=== PATIENT | male | born 1955 | race Caucasian/White ===

== ENCOUNTER 2022-06-30 08:43 | Day surgery (SDC) | payer MEDICARE ==
[~2022-06-30 08:43] MED LIST: LACTATED RINGERS 1,000 ML IV SCH
[2022-06-30 09:45] LABS: Glucose,Whole Blood 87 mg/dL (70-110)
[2022-06-30] MEDS ORDERED: PROPOFOL 10 MG/ML 20 ML VIAL IV ONE (10:12)
[2022-06-30] MEDS ORDERED: LIDOCAINE 2% INJ 20 MG/ML (2 ML VIAL) ONE (10:12)
--- NOTE | 2022-06-30 10:30 | P.PCN ---
Date of Procedure: 06/30/22 Procedure(s) Performed: BRIEF HISTORY: Patient is a 66-year-old pleasant white male scheduled for an elective colonoscopy as a part of positive cologuard abd screening for colon cancer PROCEDURE PERFORMED: Colonoscopy. PREOPERATIVE DIAGNOSIS: Positive cologuard and screening for colon cancer. IV sedation per Anesthesia. PROCEDURE: After informed consent was obtained, the patient, was brought into the endoscopy unit. IV sedation was administered by Anesthesia under continuous monitoring. Digital rectal examination was normal. Initially the Olympus CF-160 flexible video colonoscope was then inserted in the rectum, gradually advanced into the cecum without any difficulty. Careful examination was performed as the scope was gradually being withdrawn. Ileocecal valve and the appendiceal orifice were visualized and appeared normal. Prep was excellent. Mucosa of the cecum, ascending colon, transverse colon, descending colon, sigmoid colon, and rectum appeared normal. Retroflexion was performed in the rectum and no lesions were seen. The patient tolerated the procedure well. IMPRESSION: Normal-appearing colon from rectum to cecum with no evidence of colorectal neoplasia. RECOMMENDATIONS: Findings of this examination were discussed with the patient as well as his family. He was advised to have a repeat screening colonoscopy in 10 years..
== END 2022-06-30 10:58 | disposition home or self-care (01) ==
LOC: ORWHC2ENDO 08:43
PROVIDERS: ATTEND Internal Medicine Gastroenterology
DX: R19.5 Other fecal abnormalities (principal); J44.9 Chronic obstructive pulmonary disease, unspecified; F17.200 Nicotine dependence, unspecified, uncomplicated; E03.9 Hypothyroidism, unspecified; Z79.01 Long term (current) use of anticoagulants; Z79.1 Long term (current) use of non-steroidal anti-inflammatories (NSAID); Z79.890 Hormone replacement therapy
CPT/HCPCS: 45378; J2704; J2001

== ENCOUNTER 2023-03-12 14:44 | Inpatient (IN) | payer MEDICARE ==
--- NOTE | 2023-03-12 15:03 | ED ---
SOB HPI - General Chief Complaint: Shortness of Breath Stated Complaint: PETEY Time Seen by Provider: 03/12/23 15:00 Source: patient, EMS Mode of arrival: EMS Limitations: no limitations - History of Present Illness Initial Comments: 67-year-old male with past history of COPD on 2 L home O2 who presents to the emergency department reporting shortness of breath, hemoptysis for the past 2 days. Denies any sick contacts with similar symptoms. He arrives with a fever but denies fevers at home. He reports his pulse ox has been falling into the high 80s. He has been using his nebulizer without any improvement in his symptoms. He denies chest pain. Admits to lower extremity swelling which is chronic for him and denies that it is any worse. No nausea, vomiting or diarrhea. No other alleviating, precipitating or modifying factors - Related Data Home Medications Medication Instructions Recorded Confirmed Albuterol Nebulized [Ventolin 2.5 mg INHALATION RT-QID 06/29/22 03/12/23 Nebulized] Fluticasone/Umeclidin/Vilanter 1 puff INHALATION RT-DAILY 06/29/22 03/12/23 [Trelegy Ellipta 100-62.5-25] Furosemide [Lasix] 40 mg PO DAILY 06/29/22 03/12/23 Ibuprofen [Motrin] 800 mg PO DAILY PRN 06/29/22 03/12/23 Levothyroxine Sodium 125 mcg PO DAILY 06/29/22 03/12/23 predniSONE 10 mg PO DAILY 06/29/22 03/12/23 Ipratropium Nebulized [Atrovent 0.5 mg INHALATION RT-QID 12/15/22 03/12/23 Nebulized 0.2 MG/ML] Albuterol Inhaler [Ventolin Hfa 2 puff INHALATION RT-QID PRN 03/12/23 03/12/23 Inhaler] Atorvastatin [Lipitor] 20 mg PO DAILY 03/12/23 03/12/23 Allergies Allergy/AdvReac Type Severity Reaction Status Date / Time No Known Allergies Allergy Verified 03/12/23 18:17 Review of Systems ROS Statement: Those systems with pertinent positive or pertinent negative responses have been documented in the HPI. ROS Other: All systems not noted in ROS Statement are negative. Past Medical History Past Medical History: Cancer, COPD, Pneumonia, Thyroid Disorder Additional Past Medical History / Comment(s): states slightly enlarged heart. prostate cancer History of Any Multi-Drug Resistant Organisms: None Reported Past Surgical History: Orthopedic Surgery Additional Past Surgical History / Comment(s): states lungs drained x2 for pneumonia, fx femur surgery, cataracts Past Anesthesia/Blood Transfusion Reactions: No Reported Reaction Past Psychological History: No Psychological Hx Reported Smoking Status: Former smoker Past Alcohol Use History: Occasional Past Drug Use History: None Reported - Past Family History Mother Family Medical History: Myocardial Infarction ([place]) General Exam Limitations: no limitations General appearance: alert, in no apparent distress Eye exam: Present: normal appearance, PERRL, EOMI. Absent: scleral icterus, conjunctival injection, periorbital swelling ENT exam: Present: mucous membranes dry Neck exam: Present: normal inspection. Absent: tenderness, meningismus, lymphadenopathy Respiratory exam: Present: wheezes, accessory muscle use, decreased breath so unds Cardiovascular Exam: Present: normal rhythm, tachycardia GI/Abdominal exam: Present: soft, normal bowel sounds. Absent: distended, tenderness, guarding, rebound, rigid Extremities exam: Present: full ROM, normal capillary refill, pedal edema. Absent: tenderness, joint swelling, calf tenderness Neurological exam: Present: alert, oriented X3, CN II-XII intact Psychiatric exam: Present: normal affect, normal mood Skin exam: Present: warm, dry, intact, normal color. Absent: rash Course Vital Signs 03/12/23 03/12/23 03/12/23 14:54 14:58 15:00 Temperature 100.8 F H Pulse Rate 122 H 113 H Respiratory 18 22 9 L Rate Blood Pressure 111/73 111/73 O2 Sat by Pulse 92 L 94 L Oximetry 03/12/23 03/12/23 03/12/23 15:30 16:00 16:30 Temperature Pulse Rate 120 H 112 H 112 H Respiratory 27 H 29 H 15 Rate Blood Pressure 106/73 106/73 O2 Sat by Pulse 94 L 95 Oximetry 03/12/23 03/12/23 19:04 19:29 Temperature Pulse Rate 108 H 102 H Respiratory 20 18 Rate Blood Pressure 117/72 117/72 O2 Sat by Pulse 94 L 93 L Oximetry Medical Decision Making - Medical Decision Making Was pt. sent in by a medical professional or institution (, PA, QUALITY SYSTEMS ENGINEER, urgent care, hospital, or custodial...) When possible be specific @ -No Did you speak to anyone other than the patient for history (EMS, parent, family, police, friend...)? What history was obtained from this source @ -No Did you review nursing and triage notes (agree or disagree)? Why? @ -I reviewed and agree with nursing and triage notes Were old charts reviewed (outside hosp., previous admission, EMS record, old EKG, old radiological studies, urgent care reports/EKG's, custodial records)? Report findings @ -Old charts were reviewed - previous admission for pneumonia Differential Diagnosis (chest pain, altered mental status, abdominal pain women, abdominal pain men, vaginal bleeding, weakness, fever, dyspnea, syncope, headache, dizziness, GI bleed, back pain, seizure, CVA, palpatations, mental health, musculoskeletal)? @ -not applicable EKG interpreted by me (3pts min.). @ -Yes and demonstrates sinus tachycardia with frequent PVCs. Rate of 111. OH interval 135. QRS 89. QTC of 349. No acute ST segment elevations or depressions X-rays interpreted by me (1pt min.). @ -Yes - CAP CT interpreted by me (1pt min.). @ -Yes - no pe, CAP U/S interpreted by me (1pt. min.). @ -None done What testing was considered but not performed or refused? (CT, X-rays, U/S, labs)? Why? @ -None What meds were considered but not given or refused? Why? @ -None Did you discuss the management of the patient with other professionals (professionals i.e. , PA, QUALITY SYSTEMS ENGINEER, lab, RT, psych nurse, social service worker, parent trainer, teacher, credit review officer, family caseworker)? Give summary @ -Dr. Hensley who accepts admission Was smoking cessation discussed for >3mins.? @ -No Was critical care preformed (if so, how long)? @ -No Were there social determinants of health that impacted care today? How? ( Homelessness, low income, unemployed, alcoholism, drug addiction, transportation, low edu. Level, literacy, decrease access to med. care, assisted, rehab)? @ -No Was there de-escalation of care discussed even if they declined (Discuss DNR or withdrawal of care, Hospice)? DNR status @ -No What co-morbidities impacted this encounter? (DM, HTN, Smoking, COPD, CAD, Cancer, CVA, ARF, Chemo, Hep., AIDS, mental health diagnosis, sleep apnea, morbid obesity)? @ -COPD, home 02 dependant Was patient admitted / discharged? Hospital course, mention meds given and route, prescriptions, significant lab abnormalities, going to OR and other pertinent info. @ -Upon arrival patient was placed into room 5. He is tachycardic, febrile with higher O2 requirements. IV is established and laboratory studies are conducted and reviewed. His chest x-ray was performed which demonstrates atelectasis versus infiltrate. CT is performed due to tachycardia and hypoxia which does not demonstrate PE. There is visualized infiltrates. Blood cultures obtained. Patient given antibiotics. Breathing treatments are ordered. He recommended admission for which the patient was agreeable. Spoke with Dr. hensley who agreed to admit the patient. Undiagnosed new problem with uncertain prognosis? @ -yes Drug Therapy requiring intensive monitoring for toxicity (Heparin, Nitro, Insulin, Cardizem)? @ -No Were any procedures done? @ -No Diagnosis/symptom? @ -Acute respiratory insufficiency on chronic respiratory failure on community-acquired pneumonia, COPD exacerbation, leukocytosis, sepsis Acute, or Chronic, or Acute on Chronic? @ -Acute Uncomplicated (without systemic symptoms) or Complicated (systemic symptoms)? @ -Complicated Side effects of treatment? @ -No Exacerbation, Progression, or Severe Exacerbation? @ -No Poses a threat to life or bodily function? How? (Chest pain, [place], [place], pneumonia, PE, COPD, DKA, ARF, appy, cholecystitis, CVA, Diverticulitis, Homicidal, Suicidal, threat to staff... and all critical care pts) @ -Yes patient has respiratory insufficiency - Lab Data Result diagrams: 03/12/23 15:19 03/12/23 15:19 Lab Results 03/12/23 03/12/23 03/12/23 Range/Units 15:19 15:19 15:19 WBC 15.9 H (3.8-10.6) k/uL RBC 4.54 (4.30-5.90) m/uL Hgb 14.5 (13.0-17.5) gm/dL Hct 44.1 (39.0-53.0) % MCV 97.1 (80.0-100.0) fL MCH 32.0 (25.0-35.0) pg MCHC 33.0 (31.0-37.0) g/dL RDW 12.5 (11.5-15.5) % Plt Count 225 (150-450) k/uL MPV 9.9 Neutrophils % 82 % Lymphocytes % 9 % Monocytes % 7 % Eosinophils % 1 % Basophils % 0 % Neutrophils # 12.9 H (1.3-7.7) k/uL Lymphocytes # 1.5 (1.0-4.8) k/uL Monocytes # 1.0 (0-1.0) k/uL Eosinophils # 0.2 (0-0.7) k/uL Basophils # 0.0 (0-0.2) k/uL PT 9.9 (9.0-12.0) sec INR 0.9 (<1.2) APTT 18.1 L (22.0-30.0) sec D-Dimer 1.22 H (<0.60) mg/L FEU Sodium (137-145) mmol/L Potassium (3.5-5.1) mmol/L Chloride (98-107) mmol/L Carbon Dioxide (22-30) mmol/L Anion Gap mmol/L BUN (9-20) mg/dL Creatinine (0.66-1.25) mg/dL Est GFR (CKD-EPI)AfAm (>60 ml/min/1.73 sqM) Est GFR (CKD-EPI)NonAf (>60 ml/min/1.73 sqM) Glucose (74-99) mg/dL Lactic Ac Sepsis Rflx Plasma Lactic Acid Alex (0.7-2.0) mmol/L Calcium (8.4-10.2) mg/dL Magnesium (1.6-2.3) mg/dL Total Bilirubin (0.2-1.3) mg/dL AST (17-59) U/L ALT (4-49) U/L Alkaline Phosphatase (38-126) U/L Troponin I (0.000-0.034) ng/mL NT-Pro-B Natriuret Pep pg/mL Total Protein (6.3-8.2) g/dL Albumin (3.5-5.0) g/dL Urine Color Yellow Urine Appearance Clear (Clear) Urine pH 5.5 (5.0-8.0) Ur Specific [place] 1.029 (1.001-1.035) Urine Protein 1+ H (Negative) Urine Glucose (UA) Negative (Negative) Urine Ketones Negative (Negative) Urine Blood Negative (Negative) Urine Nitrite Negative (Negative) Urine Bilirubin Negative (Negative) Urine Urobilinogen 2.0 (<2.0) mg/dL Ur Leukocyte Esterase Trace H (Negative) Urine RBC 1 (0-5) /hpf Urine WBC 2 (0-5) /hpf Ur Squamous Epith Cells <1 (0-4) /hpf Urine Mucus Few H (None) /hpf Influenza Type A (PCR) (Not Detectd) Influenza Type B (PCR) (Not Detectd) RSV (PCR) (Not Detectd) SARS-CoV-2 (PCR) (Not Detectd) 03/12/23 03/12/23 03/12/23 Range/Units 15:19 15:19 15:19 WBC (3.8-10.6) k/uL RBC (4.30-5.90) m/uL Hgb (13.0-17.5) gm/dL Hct (39.0-53.0) % MCV (80.0-100.0) fL MCH (25.0-35.0) pg MCHC (31.0-37.0) g/dL RDW (11.5-15.5) % Plt Count (150-450) k/uL MPV Neutrophils % % Lymphocytes % % Monocytes % % Eosinophils % % Basophils % % Neutrophils # (1.3-7.7) k/uL Lymphocytes # (1.0-4.8) k/uL Monocytes # (0-1.0) k/uL Eosinophils # (0-0.7) k/uL Basophils # (0-0.2) k/uL PT (9.0-12.0) sec INR (<1.2) APTT (22.0-30.0) sec D-Dimer (<0.60) mg/L FEU Sodium 139 (137-145) mmol/L Potassium 4.8 (3.5-5.1) mmol/L Chloride 102 (98-107) mmol/L Carbon Dioxide 29 (22-30) mmol/L Anion Gap 8 mmol/L BUN 21 H (9-20) mg/dL Creatinine 0.93 (0.66-1.25) mg/dL Est GFR (CKD-EPI)AfAm >90 (>60 ml/min/1.73 sqM) Est GFR (CKD-EPI)NonAf 86 (>60 ml/min/1.73 sqM) Glucose 124 H (74-99) mg/dL Lactic Ac Sepsis Rflx Plasma Lactic Acid Alex 2.2 H* (0.7-2.0) mmol/L Calcium 8.9 (8.4-10.2) mg/dL Magnesium 2.0 (1.6-2.3) mg/dL Total Bilirubin 0.8 (0.2-1.3) mg/dL AST 181 H (17-59) U/L ALT 171 H (4-49) U/L Alkaline Phosphatase 232 H (38-126) U/L Troponin I <0.012 (0.000-0.034) ng/mL NT-Pro-B Natriuret Pep pg/mL Total Protein 6.5 (6.3-8.2) g/dL Albumin 3.6 (3.5-5.0) g/dL Urine Color Urine Appearance (Clear) Urine pH (5.0-8.0) Ur Specific [place] (1.001-1.035) Urine Protein (Negative) Urine Glucose (UA) (Negative) Urine Ketones (Negative) Urine Blood (Negative) Urine Nitrite (Negative) Urine Bilirubin (Negative) Urine Urobilinogen (<2.0) mg/dL Ur Leukocyte Esterase (Negative) Urine RBC (0-5) /hpf Urine WBC (0-5) /hpf Ur Squamous Epith Cells (0-4) /hpf Urine Mucus (None) /hpf Influenza Type A (PCR) (Not Detectd) Influenza Type B (PCR) (Not Detectd) RSV (PCR) (Not Detectd) SARS-CoV-2 (PCR) (Not Detectd) 03/12/23 03/12/23 03/12/23 Range/Units 15:19 15:19 16:18 WBC (3.8-10.6) k/uL RBC (4.30-5.90) m/uL Hgb (13.0-17.5) gm/dL Hct (39.0-53.0) % MCV (80.0-100.0) fL MCH (25.0-35.0) pg MCHC (31.0-37.0) g/dL RDW (11.5-15.5) % Plt Count (150-450) k/uL MPV Neutrophils % % Lymphocytes % % Monocytes % % Eosinophils % % Basophils % % Neutrophils # (1.3-7.7) k/uL Lymphocytes # (1.0-4.8) k/uL Monocytes # (0-1.0) k/uL Eosinophils # (0-0.7) k/uL Basophils # (0-0.2) k/uL PT (9.0-12.0) sec INR (<1.2) APTT (22.0-30.0) sec D-Dimer (<0.60) mg/L FEU Sodium (137-145) mmol/L Potassium (3.5-5.1) mmol/L Chloride (98-107) mmol/L Carbon Dioxide (22-30) mmol/L Anion Gap mmol/L BUN (9-20) mg/dL Creatinine (0.66-1.25) mg/dL Est GFR (CKD-EPI)AfAm (>60 ml/min/1.73 sqM) Est GFR (CKD-EPI)NonAf (>60 ml/min/1.73 sqM) Glucose (74-99) mg/dL Lactic Ac Sepsis Rflx Y Plasma Lactic Acid Alex (0.7-2.0) mmol/L Calcium (8.4-10.2) mg/dL Magnesium (1.6-2.3) mg/dL Total Bilirubin (0.2-1.3) mg/dL AST (17-59) U/L ALT (4-49) U/L Alkaline Phosphatase (38-126) U/L Troponin I (0.000-0.034) ng/mL NT-Pro-B Natriuret Pep 228 pg/mL Total Protein (6.3-8.2) g/dL Albumin (3.5-5.0) g/dL Urine Color Urine Appearance (Clear) Urine pH (5.0-8.0) Ur Specific [place] (1.001-1.035) Urine Protein (Negative) Urine Glucose (UA) (Negative) Urine Ketones (Negative) Urine Blood (Negative) Urine Nitrite (Negative) Urine Bilirubin (Negative) Urine Urobilinogen (<2.0) mg/dL Ur Leukocyte Esterase (Negative) Urine RBC (0-5) /hpf Urine WBC (0-5) /hpf Ur Squamous Epith Cells (0-4) /hpf Urine Mucus (None) /hpf Influenza Type A (PCR) Not Detected (Not Detectd) Influenza Type B (PCR) Not Detected (Not Detectd) RSV (PCR) Not Detected (Not Detectd) SARS-CoV-2 (PCR) Not Detected (Not Detectd) Disposition Clinical Impression: Acute respiratory insufficiency, Pneumonia, Sepsis, Leukocytosis Disposition: ADMITTED IP TO THIS [facility] Condition: Serious Is patient prescribed a controlled substance at d/c from ED?: No Time of Disposition: 17:57 Decision to Admit Reason: Admit from EC Decision Date: 03/12/23 Decision Time: 17:57
[2023-03-12] MEDS ORDERED: ACETAMINOPHEN TAB 500 MG TAB PO STA (15:19)
[2023-03-12 15:44] LABS: Basophils % (A) 0 %; Eosinophils # (A) 0.2 k/uL (0-0.7); Eosinophils % (A) 1 %; HCT 44.1 % (39.0-53.0); HGB 14.5 gm/dL (13.0-17.5); Lymphocytes # (A) 1.5 k/uL (1.0-4.8); Lymphocytes % (A) 9 %; MCV 97.1 fL (80.0-100.0); Mean Platelet Volume 9.9; Monocytes % (A) 7 %; Neutrophils # (A) 12.9 k/uL (1.3-7.7); Neutrophils % (A) 82 %; Platelet Count 225 k/uL (150-450); RBC 4.54 m/uL (4.30-5.90); RDW 12.5 % (11.5-15.5); WBC 15.9 k/uL (3.8-10.6)
[2023-03-12 15:48] LABS: Appearance,Urine Clear (Clear); Bilirubin,Urine Negative (Negative); Blood,Urine Negative (Negative); Color,Urine Yellow; Glucose,Urine (UA) Negative (Negative); Ketones,Urine Negative (Negative); Leukocyte Esterase,Urine Trace (Negative); Mucus,Urine Few /hpf; Nitrite,Urine Negative (Negative); PH, Urine 5.5 (5.0-8.0); Protein,Urine 1+ (Negative); RBC,Urine 1 /hpf (0-5); Specific Gravity,Urine 1.029 (1.001-1.035); Squamous Epithelial Cell,Urine <1 /hpf (0-4); WBC,Urine 2 /hpf (0-5)
[2023-03-12 15:57] LABS: ALT 171 U/L (4-49); AST 181 U/L (17-59); African American GFR (CKD) >90 (>60 ml/min/1.73 sqM); Albumin 3.6 g/dL (3.5-5.0); Alkaline Phosphatase 232 U/L (38-126); Anion Gap 8 mmol/L; Blood Urea Nitrogen 21 mg/dL (9-20); Calcium 8.9 mg/dL (8.4-10.2); Carbon Dioxide 29 mmol/L (22-30); Chloride 102 mmol/L (98-107); Glucose 124 mg/dL (74-99); Non-African American GFR(CKD) 86 (>60 ml/min/1.73 sqM); Potassium 4.8 mmol/L (3.5-5.1); Sodium 139 mmol/L (137-145); Total Bilirubin 0.8 mg/dL (0.2-1.3); Total Protein 6.5 g/dL (6.3-8.2)
[2023-03-12 16:24] LABS: INR 0.9 (<1.2); Prothrombin Time 9.9 sec (9.0-12.0)
[2023-03-12 16:26] LABS: Partial Thromboplastin Time 18.1 sec (22.0-30.0)
--- NOTE | 2023-03-12 16:30 | XR ---
EXAMINATION TYPE: XR chest 2V DATE OF EXAM: 03/12/2023 COMPARISON: 06/05/2022 INDICATION: Difficulty breathing TECHNIQUE: Frontal and lateral views of the chest are obtained. FINDINGS: The heart size is normal. The pulmonary vasculature is normal. The lungs are clear. IMPRESSION: 1. No acute pulmonary process.
--- NOTE | 2023-03-12 17:16 | CT ---
EXAMINATION TYPE: CT chest angio for PE DATE OF EXAM: 03/12/2023 COMPARISON: none HISTORY: SOB, Tachycardia, elevated d-dimer CT DLP: 2359.7 mGycm CONTRAST: CT chest with contrast and 3D reconstruction with MIP imaging is performed with IV Contrast, patient injected with 100 mL of Isovue 370. Contrast-enhanced CT of the chest was performed through the course of the pulmonary arteries with lucy g and mediastinal window settings submitted. 3D reconstruction with MIP imaging was also performed. PULMONARY ARTERIES: The pulmonary arteries and their major tributaries are patent. I do not see cody dence for sizable filling defect to suggest pulmonary embolic process. LUNGS: Patchy basilar density may reflect atelectasis and/or developing infiltrate. Correlate clinica lly. MEDIASTINUM: Thoracic aorta is of normal caliber,however, evaluation is limited given timing of the contrast bolus. If there is concern for thoracic aortic pathology consider STACIA. Correlate clinicall y . The heart is not enlarged. No evidence for mediastinal mass. No mediastinal lymph nodes greater than 1cm. HILAR STRUCTURES: No evidence for mass. No hilar lymph nodes greater than 1 cm. UPPER ABDOMEN: No significant abnormality is seen. IMPRESSION: 1. No evidence for Pulmonary embolism at this time. 2. Patchy basilar density may reflect atelectasis and/or developing infiltrate. Correlate clinically .
--- NOTE | 2023-03-12 17:19 | CT ---
EXAMINATION TYPE: CT abdomen w con DATE OF EXAM: 03/12/2023 COMPARISON: none HISTORY: SOB, Tachycardia, elevated d-dimer and elevated liver enzymes CT DLP: 2359.7 mGycm CONTRAST: CT scan of the abdomen is performed without Oral Contrast and with IV Contrast, patient injected with mL of Isovue 370. FINDINGS: LUNG BASES-: E patchy basilar density at the lung bases may reflect developing infiltrate. LIVER/GB: No calcified gallstones. No space occupying hepatic lesion. Biliary tree is of normal ca liber. PANCREAS: No inflammation. No distinct mass. SPLEEN: No splenic enlargement. No lesion seen. ADRENALS: No nodule. No thickening. KIDNEYS/BLADDER: No hydronephrosis. No nephrolithiasis. Renal cystic changes. Urinary bladder gross ly unremarkable. BOWEL: Poor visualization of the appendix. Normal bowel caliber. No inflammation. LYMPH NODES: No greater than 1cm abdominal or pelvic lymph nodes are appreciated. AORTA: No significant abnormality. OSSEOUS STRUCTURES: Degenerative changes lumbar spine. OTHER: No significant additional abnormality is seen. IMPRESSION: 1. No acute process seen. Basilar atelectasis or developing infiltrates.
[2023-03-12] MEDS ORDERED: PNEUMONIA PROTOCOL UTILIZED 1 EACH MISC PO PRN (17:29)
[2023-03-12] MEDS ORDERED: AZITHROMYCIN 500 MG in SODIUM CHLORIDE 0.9% 250 ML IVPB STA (17:29)
[2023-03-12] MEDS ORDERED: IPRATROPIUM-ALBUTEROL 3 ML NEB INHALATION PRN (17:58)
[2023-03-12] MEDS: SODIUM CHLORIDE 0.9% 1,000 ML IV SCH (18:25)
[2023-03-12] MEDS ORDERED: ACETAMINOPHEN TAB 325 MG TAB PO PRN (20:17)
[2023-03-12] MEDS ORDERED: IBUPROFEN 800 MG TAB PO PRN (20:17)
[2023-03-12] MEDS ORDERED: methylPREDNISolone SOD SUCCI 125 MG/2 ML VIAL IV STA (20:18)
[2023-03-13] MEDS: SODIUM CHLORIDE 0.9% 1,000 ML IV SCH ×4 (03:08→23:34)
[2023-03-13] MEDS: LEVOTHYROXINE 125 MCG TAB PO SCH (06:18)
[2023-03-13] MEDS: methylPREDNISolone SOD SUCCI 40 MG/ML 1 ML VIAL IV SCH ×3 (06:18→23:33)
[2023-03-13] MEDS ORDERED: IPRATROPIUM 0.5 MG/2.5 ML NEBU INHALATION SCH (08:00)
[2023-03-13] MEDS ORDERED: NON FORMULARY DRUG (Fluticasone/Umeclidin/Vilanter [Trelegy Ellipta 100-62.5-25] 1 EACH Bl INHALATION SCH (08:00)
[2023-03-13] MEDS: IPRATROPIUM-ALBUTEROL 3 ML NEB INHALATION SCH ×4 (08:15→20:46)
[2023-03-13] MEDS: SYMBICORT 80-4.5 MCG INHALER INHALATION SCH ×2 (08:15→20:46)
[2023-03-13] MEDS ORDERED: ATORVASTATIN 20 MG TAB PO SCH (09:00)
--- NOTE | 2023-03-13 10:47 | P.CNPUL ---
History of Present Illness Consult date: 03/13/23 Requesting physician: Fabio Hensley Reason for consult: dyspnea, COPD Chief complaint: Shortness of breath History of present illness: This is a very pleasant 67-year-old male patient with a known history of oxygen dependent, steroid dependent chronic obstructive pulmonary disease, prostate can cer, hypothyroidism, former smoker, hyperlipidemia, chronic lower extremity edema. He presented to the emergency room yesterday with a 2 day history of increasing shortness of breath, cough and congestion. Chest x-ray revealed no acute pulmonary process. CT angiogram ruled out pulmonary embolism. There is a patchy basilar density reflecting atelectasis. Computed tomography scan of the abdomen revealed no acute process. White count 15.9. Hemoglobin 14.5. D-dimer 1.22. Sodium 139. Potassium 4.8. Bicarb 29. BUN 21. Creatinine 0.93. Glucose 124. ProBNP 228. Troponin negative 1. AST 181. ALT 171. Influenza screen negative. RSV screen negative. COVID-19 screen negative. Review of Systems REVIEW OF SYSTEMS: CONSTITUTIONAL: Denies any recent significant weight loss or weight gain. EYES: Denies change in vision. EARS, NOSE, MOUTH, THROAT: Denies headaches, denies sore throat. CARDIOVASCULAR: Denies chest pain, palpitations or syncopal episodes. RESPIRATORY: Positive for shortness of breath, cough, congestion no hemoptysis. GASTROINTESTINAL: Denies change in appetite, denies abdominal pain GENITOURINARY: Denies hematuria, denies infections. MUSKULOSKELETAL: Denies pain, denies swelling. INTEGUMENTARY: Denies rash, denies eczema. NEUROLOGICAL: Denies recent memory loss, no recent seizure activity. PSYCHIATRIC: Denies anxiety, denies depression. HEMATOLOGIC/LYMPHATIC: Denies anemia, denies enlarged lymph nodes. Past Medical History Past Medical History: Cancer, COPD, Pneumonia, Thyroid Disorder Additional Past Medical History / Comment(s): states slightly enlarged heart. prostate cancer History of Any Multi-Drug Resistant Organisms: None Reported Past Surgical History: Orthopedic Surgery Additional Past Surgical History / Comment(s): states lungs drained x2 for pneumonia, fx femur surgery, cataracts Past Anesthesia/Blood Transfusion Reactions: No Reported Reaction Past Psychological History: No Psychological Hx Reported Smoking Status: Former smoker Past Alcohol Use History: Occasional Past Drug Use History: None Reported - Past Family History Mother Family Medical History: Myocardial Infarction ([place]) Medications and Allergies Home Medications Medication Instructions Recorded Confirmed Type Albuterol Nebulized [Ventolin 2.5 mg INHALATION RT-QID 06/29/22 03/12/23 History Nebulized] Fluticasone/Umeclidin/Vilanter 1 puff INHALATION RT-DAILY 06/29/22 03/12/23 History [[place] Ellipta 100-62.5-25] Furosemide [Lasix] 40 mg PO DAILY 06/29/22 03/12/23 History Ibuprofen [Motrin] 800 mg PO DAILY PRN 06/29/22 03/12/23 History Levothyroxine Sodium 125 mcg PO DAILY 06/29/22 03/12/23 History predniSONE 10 mg PO DAILY 06/29/22 03/12/23 History Ipratropium Nebulized [Atrovent 0.5 mg INHALATION RT-QID 12/15/22 03/12/23 History Nebulized 0.2 MG/ML] Albuterol Inhaler [Ventolin Hfa 2 puff INHALATION RT-QID PRN 03/12/23 03/12/23 History Inhaler] Atorvastatin [Lipitor] 20 mg PO DAILY 03/12/23 03/12/23 History Allergies Allergy/AdvReac Type Severity Reaction Status Date / Time No Known Allergies Allergy Verified 03/12/23 18:17 Physical Exam Vitals: Vital Signs Temp Pulse Pulse Resp BP BP Pulse Ox 03/13/23 08:26 90 03/13/23 08:15 88 97 03/13/23 07:19 97.6 F 78 16 144/68 94 L 03/13/23 01:29 98.1 F 86 17 105/71 92 L 03/12/23 23:17 18 03/12/23 22:28 98.2 F 100 18 111/74 93 L 03/12/23 22:11 93 18 115/71 95 03/12/23 21:00 93 18 121/73 97 03/12/23 20:44 95 03/12/23 20:40 92 03/12/23 20:00 93 18 119/77 95 03/12/23 19:29 102 H 18 117/72 93 L 03/12/23 19:04 108 H 20 117/72 94 L 03/12/23 16:30 112 H 15 03/12/23 16:00 112 H 29 H 106/73 95 03/12/23 15:30 120 H 27 H 106/73 94 L 03/12/23 15:00 113 H 9 L 111/73 94 L 03/12/23 14:58 22 03/12/23 14:54 100.8 F H 122 H 18 111/73 92 L Intake and Output 03/12/23 03/13/23 03/13/23 22:59 06:59 14:59 Other: Weight 103.419 kg GENERAL EXAM: Alert, very pleasant 67-year-old male, on 3 L nasal cannula, comfortable in no apparent distress. HEAD: Normocephalic. EYES: Normal reaction of pupils, equal size. NOSE: Clear with pink turbinates. THROAT: No erythema or exudates. NECK: No masses, no JVD. CHEST: No chest wall deformity. LUNGS: Equal air entry with faint end expiratory wheeze, diminished. CVS: S1 and S2 normal with no audible murmur, regular rhythm. ABDOMEN: No hepatosplenomegaly, normal bowel sounds, no guarding or rigidity. SPINE: No scoliosis or deformity SKIN: No rashes CENTRAL NERVOUS SYSTEM: No focal deficits, tone is normal in all 4 extremities. EXTREMITIES: There is 1+ peripheral edema. No clubbing, no cyanosis. Peripheral pulses are intact. Results - Laboratory Findings CBC and BMP: 03/12/23 15:19 03/12/23 15:19 PT/INR, D-dimer PT 9.9 sec (9.0-12.0) 03/12/23 15:19 INR 0.9 (<1.2) 03/12/23 15:19 D-Dimer 1.22 mg/L FEU (<0.60) H 03/12/23 15:19 Abnormal lab findings: Abnormal Labs 03/12/23 03/12/23 03/12/23 15:19 15:19 15:19 WBC 15.9 H Neutrophils # 12.9 H APTT 18.1 L D-Dimer 1.22 H BUN Glucose Plasma Lactic Acid Alex AST ALT Alkaline Phosphatase Urine Protein 1+ H Ur Leukocyte Esterase Trace H Urine Mucus Few H 03/12/23 03/12/23 15:19 15:19 WBC Neutrophils # APTT D-Dimer BUN 21 H Glucose 124 H Plasma Lactic Acid Alex 2.2 H* AST 181 H ALT 171 H Alkaline Phosphatase 232 H Urine Protein Ur Leukocyte Esterase Urine Mucus - Diagnostic Findings Chest x-ray: image reviewed CT scan - chest: image reviewed Assessment and Plan Assessment: Acute exacerbation of oxygen dependent, steroid dependent chronic obstructive pulmonary disease Acute on chronic hypoxemic respiratory failure secondary to above Transaminitis of unclear etiology. Computed tomography scan of the abdomen revealed no acute process. He is on statins History of prostate cancer Hyperlipidemia Obesity Former smoker Hypothyroidism Chronic lower extremity edema maintained on diuretics Plan: The patient was seen and evaluated Chest x-ray, CAT scans, labs and medications reviewed Ultrasound of the abdomen pending Continue DuoNeb inhalations, Symbicort, IV Solu-Medrol Check a pro-calcitonin, continue antibiotics for now Titrate the FiO2 as tolerated Increase his activity as tolerated We will continue to follow and make further recommendations based on his clinical status I have personally seen and examined the patient, performed the documentation and the assessment and plan as written. Number of minutes spent on the visit: 20.
[2023-03-13] MEDS: AZITHROMYCIN 500 MG in SODIUM CHLORIDE 0.9% 250 ML IVPB SCH (10:57)
[2023-03-13 12:18] VITALS: BMI 36.8
--- NOTE | 2023-03-13 14:36 | P.HPIM ---
History of Present Illness H&P Date: 03/13/23 History of present illness; patient is a 67-year-old gentleman with past medical history significant for COPD who presented to the ER because of worsening shortness of breath. Patient stated that he was already 2 days back when he started noticing shortness of breath on rest as well as exertion. Denies any fever. Did complain of hemoptysis. Denies any chest pain. No complain of orthopnea PND. Patient has chronic swelling of feet. Because of this worsening shortness of breath, patient came to the ER Initial lab work in the ER showed WBC 15.9, hemoglobin 14.5, platelet count 225, d-dimer 1.22, sodium 139, potassium 4.8, BUN 21, creatinine 0.93, AST 181, ALT 171, Chest x-ray negative for acute pulmonary process CTA chest negative for PE, showed by patchy basilar density could be developing infiltrate CT abdomin showed no acute abdominal process Patient admitted to medicine service REVIEW OF SYSTEMS: CONSTITUTIONAL: No fever, no malaise, no fatigue. HEENT: No recent visual problems or hearing problems. Denied any sore throat. CARDIOVASCULAR: As mentioned in HPI PULMONARY: As mentioned in HPI GASTROINTESTINAL: No diarrhea, no nausea, no vomiting, no abdominal pain. NEUROLOGICAL: No headaches, no weakness, no numbness. HEMATOLOGICAL: Denies any bleeding or petechiae. GENITOURINARY: Denies any burning micturition, frequency, or urgency. MUSCULOSKELETAL/RHEUMATOLOGICAL: Denies any joint pain, swelling, or any muscle pain. ENDOCRINE: Denies any polyuria or polydipsia. The rest of the 14-point review of systems is negative. PHYSICAL EXAMINATION: GENERAL: The patient is alert and oriented x3, not in any acute distress. Well developed, well nourished. HEENT: Pupils are round and equally reacting to light. EOMI. No scleral icterus. No conjunctival pallor. Normocephalic, atraumatic. No pharyngeal erythema. No thyromegaly. CARDIOVASCULAR: S1 and S2 present. No murmurs, rubs, or gallops. PULMONARY: Coarse breath some bilaterally, no wheeze, no rhonchi ABDOMEN: Soft, nontender, nondistended, normoactive bowel sounds. No palpable organomegaly. MUSCULOSKELETAL: No joint swelling or deformity. EXTREMITIES: No cyanosis, clubbing, or pedal edema. NEUROLOGICAL: Gross neurological examination did not reveal any focal deficits. SKIN: No rashes. Assessment and plan Acute hypoxemic respiratory failure Acute COPD exacerbation Elevated d-dimer Elevated LFTs Hypothyroidism Hyperlipidemia Monitor vital signs Monitor CBC Monitor CMP Check pro-Fidencio Continue IV Rocephin and azithromycin Continue breathing treatments Continue IV steroids Hold statin Ordered ultrasound abdominal Pulmonary consulted Past Medical History Past Medical History: Cancer, COPD, Pneumonia, Thyroid Disorder Additional Past Medical History / Comment(s): states slightly enlarged heart. prostate cancer History of Any Multi-Drug Resistant Organisms: None Reported Past Surgical History: Orthopedic Surgery Additional Past Surgical History / Comment(s): states lungs drained x2 for pneumonia, fx femur surgery, cataracts Past Anesthesia/Blood Transfusion Reactions: No Reported Reaction Past Psychological History: No Psychological Hx Reported Smoking Status: Former smoker Past Alcohol Use History: Occasional Past Drug Use History: None Reported - Past Family History Mother Family Medical History: Myocardial Infarction ([place]) Medications and Allergies Home Medications Medication Instructions Recorded Confirmed Type Albuterol Nebulized [Ventolin 2.5 mg INHALATION RT-QID 06/29/22 03/12/23 History Nebulized] Fluticasone/Umeclidin/Vilanter 1 puff INHALATION RT-DAILY 06/29/22 03/12/23 History [[place]leg[place] Ellipta 100-62.5-25] Furosemide [Lasix] 40 mg PO DAILY 06/29/22 03/12/23 History Ibuprofen [Motrin] 800 mg PO DAILY PRN 06/29/22 03/12/23 History Levothyroxine Sodium 125 mcg PO DAILY 06/29/22 03/12/23 History predniSONE 10 mg PO DAILY 06/29/22 03/12/23 History Ipratropium Nebulized [Atrovent 0.5 mg INHALATION RT-QID 12/15/22 03/12/23 History Nebulized 0.2 MG/ML] Albuterol Inhaler [Ventolin Hfa 2 puff INHALATION RT-QID PRN 03/12/23 03/12/23 History Inhaler] Atorvastatin [Lipitor] 20 mg PO DAILY 03/12/23 03/12/23 History Allergies Allergy/AdvReac Type Severity Reaction Status Date / Time No Known Allergies Allergy Verified 03/12/23 18:17 Physical Exam Vitals: Vital Signs Temp Pulse Pulse Resp BP BP Pulse Ox 03/13/23 08:26 90 07/01/23 08:15 88 97 03/13/23 07:19 97.6 F 78 16 144/68 94 L 03/13/23 01:29 98.1 F 86 17 105/71 92 L 03/12/23 23:17 18 03/12/23 22:28 98.2 F 100 18 111/74 93 L 03/12/23 22:11 93 18 115/71 95 03/12/23 21:00 93 18 121/73 97 03/12/23 20:44 95 03/12/23 20:40 92 03/12/23 20:00 93 18 119/77 95 03/12/23 19:29 102 H 18 117/72 93 L 03/12/23 19:04 108 H 20 117/72 94 L 03/12/23 16:30 112 H 15 03/12/23 16:00 112 H 29 H 106/73 95 03/12/23 15:30 120 H 27 H 106/73 94 L 03/12/23 15:00 113 H 9 L 111/73 94 L 03/12/23 14:58 22 03/12/23 14:54 100.8 F H 122 H 18 111/73 92 L Intake and Output 03/12/23 03/13/23 03/13/23 22:59 06:59 14:59 Other: Weight 103.419 kg Results CBC & Chem 7: 03/12/23 15:19 03/12/23 15:19 Labs: Abnormal Lab Results - Last 24 Hours (Table) 03/12/23 03/12/23 03/12/23 Range/Units 15:19 15:19 15:19 WBC 15.9 H (3.8-10.6) k/uL Neutrophils # 12.9 H (1.3-7.7) k/uL APTT 18.1 L (22.0-30.0) sec D-Dimer 1.22 H (<0.60) mg/L FEU BUN (9-20) mg/dL Glucose (74-99) mg/dL Plasma Lactic Acid Alex (0.7-2.0) mmol/L AST (17-59) U/L ALT (4-49) U/L Alkaline Phosphatase (38-126) U/L Urine Protein 1+ H (Negative) Ur Leukocyte Esterase Trace H (Negative) Urine Mucus Few H (None) /hpf 03/12/23 03/12/23 Range/Units 15:19 15:19 WBC (3.8-10.6) k/uL Neutrophils # (1.3-7.7) k/uL APTT (22.0-30.0) sec D-Dimer (<0.60) mg/L FEU BUN 21 H (9-20) mg/dL Glucose 124 H (74-99) mg/dL Plasma Lactic Acid Alex 2.2 H* (0.7-2.0) mmol/L AST 181 H (17-59) U/L ALT 171 H (4-49) U/L Alkaline Phosphatase 232 H (38-126) U/L Urine Protein (Negative) Ur Leukocyte Esterase (Negative) Urine Mucus (None) /hpf Thrombosis Risk Factor Assmnt - Choose All That Apply Any of the Below Risk Factors Present?: Yes Each Factor Represents 1 point: Abnormal pulmonary function (COPD), Obesity (BMI >25) Other Risk Factors: Yes Each Risk Factor Represents 2 Points: Age 61-74 years Thrombosis Risk Factor Assessment Total Risk Factor Score: 4 Thrombosis Risk Factor Assessment Level: Moderate Risk
--- NOTE | 2023-03-13 17:40 | US ---
EXAMINATION TYPE: US abdomen complete DATE OF EXAM: 03/13/2023 COMPARISON: NONE CLINICAL INDICATION: Male, 67 years old with history of Abdominal pain, elevated LFTs; elevated LFTS exam limitations due to body habitus and bowel gas. TECHNIQUE: Multiple sonographic images of the abdomen are obtained. FINDINGS: EXAM MEASUREMENTS: Liver Length: 16.3 cm Gallbladder Wall: .2 cm CBD: .5 cm Spleen: 11.7 cm Right Kidney: 8.9 x 4.5 x 4.7 cm Left Kidney: 11.8 x 4.9 x 4.2 cm INCUBATOR TENDER NOTES: Pancreas: Obscured by bowel gas Liver: Increased attenuation Gallbladder: No stones seen Evidence for sonographic Dye's sign: No CBD: wnl Spleen: Obscured by overlying bowel gas Right Kidney: No hydronephrosis or masses seen Left Kidney: Hypoechoic area inf 1.5 x 1.0 x 1.3 cm and 1.9 x 1.2 x 1.3 cm. Upper IVC: wnl Abd Aorta: Obscured by overlying bowel gas The liver is homogenous. The intrahepatic portion of the IVC and proximal abdominal aorta are within normal limits. There is no evidence of cholelithiasis. Common bile duct is unremarkable. The visu alized portions of the pancreas are homogenous. The spleen is unremarkable. Kidneys are symmetric a nd free of hydronephrosis. No renal lesions are seen. IMPRESSION: 1. Limited evaluation of the aorta and pancreas due to bowel gas. 2. Increased attenuation within the liver which may indicate mild fatty infiltration. 3. No abnormality of the gallbladder biliary tree. 4. Simple cortical cyst left kidney. 5. No renal calcifications or hydronephrosis.
[2023-03-14] MEDS: SODIUM CHLORIDE 0.9% 1,000 ML IV SCH ×3 (05:20→22:18)
[2023-03-14] MEDS: LEVOTHYROXINE 125 MCG TAB PO SCH (06:17)
[2023-03-14] MEDS: SYMBICORT 80-4.5 MCG INHALER INHALATION SCH ×2 (07:35→19:23)
[2023-03-14] MEDS: IPRATROPIUM-ALBUTEROL 3 ML NEB INHALATION SCH ×4 (07:35→19:23)
[2023-03-14] MEDS: methylPREDNISolone SOD SUCCI 40 MG/ML 1 ML VIAL IV SCH ×3 (08:14→23:42)
[2023-03-14] MEDS: FUROSEMIDE 40 MG TAB PO SCH (08:14)
[2023-03-14] MEDS: AZITHROMYCIN 500 MG in SODIUM CHLORIDE 0.9% 250 ML IVPB SCH (09:21)
[2023-03-14 10:16] LABS: ALT 283 U/L (10-49); AST 231 U/L (14-35); Alkaline Phosphatase 255 U/L (41-126); BUN/Creat Ratio 30.56 Ratio (12.00-20.00); Blood Urea Nitrogen 27.5 mg/dL (9.0-27.0); Calcium 7.7 mg/dL (8.7-10.3); Carbon Dioxide 22.2 mmol/L (21.6-31.8); Chloride 109 mmol/L (96-109); Glucose 179 mg/dL (70-110); Potassium 4.4 mmol/L (3.5-5.5); Sodium 142 mmol/L (135-145); Total Bilirubin <0.2 mg/dL (0.3-1.2)
--- NOTE | 2023-03-14 11:57 | P.PN ---
Subjective Progress Note Date: 03/14/23 This is a very pleasant 67-year-old male patient with a known history of oxygen dependent, steroid dependent chronic obstructive pulmonary disease, prostate cancer, hypothyroidism, former smoker, hyperlipidemia, chronic lower extremity edema. He presented to the emergency room yesterday with a 2 day history of increasing shortness of breath, cough and congestion. Chest x-ray revealed no acute pulmonary process. CT angiogram ruled out pulmonary embolism. There is a patchy basilar density reflecting atelectasis. Computed tomography scan of the abdomen revealed no acute process. White count 15.9. Hemoglobin 14.5. D-dimer 1.22. Sodium 139. Potassium 4.8. Bicarb 29. BUN 21. Creatinine 0.93. Glucose 124. ProBNP 228. Troponin negative 1. AST 181. ALT 171. Influenza screen negative. RSV screen negative. COVID-19 screen negative. The patient is seen today 02/12/2023 in follow-up on the regular medical floor. He is awake and alert in no acute distress. Sitting up in bed. Feels generalized weakness and fatigue but breathing is better. He's lung sounds are better. His pro calcitonin was 0.12. Blood cultures reveal no growth to date. Sodium 142. Potassium 4.4. BUN 27. Creatinine 0.9. Glucose 179. AST 231. ALT 285. Ultrasound of the abdomen revealed increased attenuation within the liver which may indicate mild fatty infiltration. No gallbladder abnormalities. Simple cortical cyst left kidney. No renal calcifications or hydronephrosis. He is continued on DuoNeb inhalations, Symbicort, IV Solu-Medrol. Normal saline at 130 MLS per hour. Antibiotics in the form of ceftriaxone and azithromycin. Objective - Vital Signs Vital signs: Vital Signs Temp 98.2 F 03/14/23 07:13 Pulse 70 03/14/23 11:31 Resp 16 03/14/23 07:13 BP 120/70 03/14/23 07:13 Pulse Ox 92 L 03/14/23 07:36 FiO2 Intake & Output 03/13/23 03/14/23 03/14/23 18:59 06:59 18:59 Weight 103.419 kg Other: # Voids 1 # Bowel Movements 1 - Exam GENERAL EXAM: Alert, 67-year-old male, on 3 L nasal cannula, comfortable in no apparent distress. HEAD: Normocephalic. EYES: Normal reaction of pupils, equal size. NOSE: Clear with pink turbinates. THROAT: No erythema or exudates. NECK: No masses, no JVD. CHEST: No chest wall deformity. LUNGS: Equal air entry with faint end expiratory wheeze, diminished. CVS: S1 and S2 normal with no audible murmur, regular rhythm. ABDOMEN: No hepatosplenomegaly, normal bowel sounds, no guarding or rigidity. SPINE: No scoliosis or deformity SKIN: No rashes CENTRAL NERVOUS SYSTEM: No focal deficits, tone is normal in all 4 extremities. EXTREMITIES: There is 1+ peripheral edema. No clubbing, no cyanosis. Peripheral pulses are intact. - Labs CBC & Chem 7: 03/12/23 15:19 03/14/23 05:40 Labs: Abnormal Lab Results - Last 24 Hours (Table) 03/13/23 03/14/23 Range/Units 09:43 05:40 BUN 27.5 H (9.0-27.0) mg/dL BUN/Creatinine Ratio 30.56 H (12.00-20.00) Ratio Glucose 179 H (70-110) mg/dL Calcium 7.7 L (8.7-10.3) mg/dL Total Bilirubin <0.2 L (0.3-1.2) mg/dL AST 231 H (14-35) U/L ALT 283 H (10-49) U/L Alkaline Phosphatase 255 H (41-126) U/L Total Protein 5.0 L (6.2-8.2) d/dL Albumin 3.0 L (3.8-4.9) d/dL Albumin/Globulin Ratio 1.50 L (1.60-3.17) Ratio Procalcitonin 0.12 H (0.02-0.09) ng/mL Microbiology - Last 24 Hours (Table) 03/12/23 15:30 Blood Culture - Preliminary Blood 03/12/23 15:45 Blood Culture - Preliminary Blood Assessment and Plan Assessment: Acute exacerbation of oxygen dependent, steroid dependent chronic obstructive pulmonary disease Acute on chronic hypoxemic respiratory failure secondary to above Transaminitis of unclear etiology. Computed tomography scan of the abdomen revealed no acute process. Ultrasound of the abdomen revealed increased attenuation within the liver which may indicate mild fatty infiltration. No abnormalities of the gallbladder. Statins on hold History of prostate cancer Hyperlipidemia Obesity Former smoker Hypothyroidism Chronic lower extremity edema maintained on diuretics Plan: The patient was seen and evaluated Ultrasound of the abdomen, labs and medications reviewed Continue DuoNeb inhalations, Symbicort, IV Solu-Medrol Procalcitonin mildly elevated at 0.12, continue antibiotics for now Titrate the FiO2 as tolerated Increase his activity as tolerated We will continue to follow I have personally seen and examined the patient, performed the documentation and the assessment and plan as written. Number of minutes spent on the visit: 10.
--- NOTE | 2023-03-14 13:01 | P.PN ---
Subjective Progress Note Date: 03/14/23 patient is a 67-year-old gentleman with past medical history significant for COPD who presented to the ER because of worsening shortness of breath. Patient stated that he was already 2 days back when he started noticing shortness of breath on rest as well as exertion. Denies any fever. Did complain of h emoptysis. Denies any chest pain. No complain of orthopnea PND. Patient has chronic swelling of feet. Because of this worsening shortness of breath, patient came to the ER Initial lab work in the ER showed WBC 15.9, hemoglobin 14.5, platelet count 225, d-dimer 1.22, sodium 139, potassium 4.8, BUN 21, creatinine 0.93, AST 181, ALT 171, Chest x-ray negative for acute pulmonary process CTA chest negative for PE, showed by patchy basilar density could be developing infiltrate CT abdomin showed no acute abdominal process Patient admitted to medicine service 03/14. Patient seen and examined. States breathing is improving. Denies Abdominal pain. States cough has also improved REVIEW OF SYSTEMS: CONSTITUTIONAL: No fever, no malaise,. CARDIOVASCULAR: No chest pain, no palpitations, no syncope. PULMONARY: As mentioned in HPI GASTROINTESTINAL: No diarrhea, no nausea, no vomiting, no abdominal pain. NEUROLOGICAL: No headaches, no weakness, PHYSICAL EXAMINATION: GENERAL: The patient is alert and oriented x3, not in any acute distress. Well developed, well nourished. HEENT: Pupils are round and equally reacting to light. EOMI. No scleral icterus. No conjunctival pallor. Normocephalic, atraumatic. No pharyngeal erythema. No thyromegaly. CARDIOVASCULAR: S1 and S2 present. No murmurs, rubs, or gallops. PULMONARY: Coarse breath sounds bilaterally, expiratory wheeze audible ABDOMEN: Soft, nontender, nondistended, normoactive bowel sounds. No palpable organomegaly. MUSCULOSKELETAL: No joint swelling or deformity. EXTREMITIES: No cyanosis, clubbing, or pedal edema. NEUROLOGICAL: Gross neurological examination did not reveal any focal deficits. SKIN: No rashes. Assessment and plan Acute hypoxemic respiratory failure Acute COPD exacerbation Elevated d-dimer Elevated LFTs Hypothyroidism Hyperlipidemia Monitor vital signs Monitor CBC Monitor CMP Continue IV Rocephin and azithromycin Continue breathing treatments Continue IV steroids Hold statin Monitor LFTs Ultrasound abdomen done showed mild fatty infiltration, no abnormality of the gallbladder Follow-up on pulmonary rec Objective - Vital Signs Vital signs: Vital Signs Temp 98.2 F 03/14/23 07:13 Pulse 76 03/14/23 07:47 Resp 16 03/14/23 07:13 BP 120/70 03/14/23 07:13 Pulse Ox 92 L 03/14/23 07:36 FiO2 Intake & Output 03/13/23 03/14/23 03/14/23 18:59 06:59 18:59 Weight 103.419 kg Other: # Voids 1 # Bowel Movements 1 - Labs CBC & Chem 7: 03/12/23 15:19 03/14/23 05:40 Labs: Abnormal Lab Results - Last 24 Hours (Table) 03/13/23 Range/Units 09:43 Procalcitonin 0.12 H (0.02-0.09) ng/mL Microbiology - Last 24 Hours (Table) 03/12/23 15:30 Blood Culture - Preliminary Blood 03/12/23 15:45 Blood Culture - Preliminary Blood
[2023-03-14 13:04] LABS: Basophils # (A) 0.07 X 10*3/uL (0.00-0.10); Basophils % (A) 0.3 %; Eosinophils # (A) 0.04 X 10*3/uL (0.04-0.35); Eosinophils % (A) 0.2 %; HCT 35.7 % (39.6-50.0); HGB 11.1 d/dL (12.0-15.0); Lymphocytes # (A) 0.81 X 10*3/uL (0.90-5.00); MCH 30.9 pg (27.0-32.0); MCHC 31.1 d/dL (32.0-37.0); MCV 99.4 FL (80.0-97.0); Mean Platelet Volume 12.6 FL (9.5-12.2); Monocytes # (A) 0.87 X 10*3/uL (0.20-1.00); Monocytes % (A) 4.3 %; NRBC Per 100 WBC 0 X 10*3/uL (0.00-0.01); Neutrophils # (A) 18.18 X 10*3/uL (1.80-7.70); Neutrophils % (A) 90.1 %; Platelet Count 232 X 10*3/uL (140-440); RBC 3.59 X 10*6/uL (4.40-5.60); RDW 12.9 % (11.5-14.5)
[2023-03-15 01:55] VITALS: RESP 16
[2023-03-15] MEDS: SODIUM CHLORIDE 0.9% 1,000 ML IV SCH ×2 (05:35→15:33)
[2023-03-15] MEDS: LEVOTHYROXINE 125 MCG TAB PO SCH (05:38)
[2023-03-15] MEDS: SYMBICORT 80-4.5 MCG INHALER INHALATION SCH (08:49)
[2023-03-15] MEDS: IPRATROPIUM-ALBUTEROL 3 ML NEB INHALATION SCH ×3 (08:49→15:51)
[2023-03-15] MEDS: FUROSEMIDE 40 MG TAB PO SCH (08:50)
[2023-03-15] MEDS ORDERED: predniSONE 20 MG TAB PO SCH (09:00)
[2023-03-15] MEDS: AZITHROMYCIN 500 MG in SODIUM CHLORIDE 0.9% 250 ML IVPB SCH (10:00)
[2023-03-15 11:22] LABS: ALT 257 U/L (10-49); AST 123 U/L (14-35); Albumin 2.9 d/dL (3.8-4.9); Albumin/Globulin Ratio 1.45 Ratio (1.60-3.17); Alkaline Phosphatase 232 U/L (41-126); BUN/Creat Ratio 29.75 Ratio (12.00-20.00); Blood Urea Nitrogen 23.8 mg/dL (9.0-27.0); Calcium 6.9 mg/dL (8.7-10.3); Carbon Dioxide 18.3 mmol/L (21.6-31.8); Chloride 109 mmol/L (96-109); Glucose 132 mg/dL (70-110); Potassium 4.5 mmol/L (3.5-5.5); Sodium 141 mmol/L (135-145); Total Bilirubin <0.2 mg/dL (0.3-1.2); Total Protein 4.9 d/dL (6.2-8.2)
--- NOTE | 2023-03-15 11:34 | P.PN ---
Subjective Progress Note Date: 03/15/23 This is a very pleasant 67-year-old male patient with a known history of oxygen dependent, steroid dependent chronic obstructive pulmonary disease, prostate cancer, hypothyroidism, former smoker, hyperlipidemia, chronic lower extremity edema. He presented to the emergency room yesterday with a 2 day history of increasing shortness of breath, cough and congestion. Chest x-ray revealed no acute pulmonary process. CT angiogram ruled out pulmonary embolism. There is a patchy basilar density reflecting atelectasis. Computed tomography scan of the abdomen revealed no acute process. White count 15.9. Hemoglobin 14.5. D-dimer 1.22. Sodium 139. Potassium 4.8. Bicarb 29. BUN 21. Creatinine 0.93. Glucose 124. ProBNP 228. Troponin negative 1. AST 181. ALT 171. Influenza screen negative. RSV screen negative. COVID-19 screen negative. The patient is seen today 02/12/2023 in follow-up on the regular medical floor. He is awake and alert in no acute distress. Sitting up in bed. Feels generalized weakness and fatigue but breathing is better. He's lung sounds are better. His pro calcitonin was 0.12. Blood cultures reveal no growth to date. Sodium 142. Potassium 4.4. BUN 27. Creatinine 0.9. Glucose 179. AST 231. ALT 285. Ultrasound of the abdomen revealed increased attenuation within the liver which may indicate mild fatty infiltration. No gallbladder abnormalities. Simple cortical cyst left kidney. No renal calcifications or hydronephrosis. He is continued on DuoNeb inhalations, Symbicort, IV Solu-Medrol. Normal saline at 130 MLS per hour. Antibiotics in the form of ceftriaxone and azithromycin. The patient is seen today 03/15/2023 in follow-up on the regular medical floor. He is resting quite comfortably in bed. Awake and alert in no acute distress. Feeling back to his baseline. He is maintaining O2 saturations in the 90s on 3 L/m per nasal cannula. Saline at 130 ML's per hour. Sodium 141. Potassium 4.5. Bicarb 18. BUN 24. Creatinine 0.8. AST 123. ALT 257. He is continued on DuoNeb inhalations, Symbicort, prednisone taper. Antibiotics in form of ceftriaxone. Remains on oral diuretics. Objective - Vital Signs Vital signs: Vital Signs Temp 98.1 F 03/15/23 07:29 Pulse 78 07/03/23 09:07 Resp 16 03/15/23 07:29 BP 132/81 03/15/23 07:29 Pulse Ox 96 03/15/23 08:57 FiO2 Intake & Output 03/14/23 03/15/23 03/15/23 18:59 06:59 18:59 Intake Total 590 Output Total 600 300 Balance -600 590 -300 Intake: Oral 590 Output: Urine 600 300 Other: Voiding Method Toilet Toilet Urinal Urinal # Voids 1 2 - Exam GENERAL EXAM: Alert, pleasant 67-year-old male, resting in bed, on 3 L nasal cannula, comfortable in no apparent distress. HEAD: Normocephalic. EYES: Normal reaction of pupils, equal size. NOSE: Clear with pink turbinates. THROAT: No erythema or exudates. NECK: No masses, no JVD. CHEST: No chest wall deformity. LUNGS: Equal air entry with faint end expiratory wheeze, diminished. CVS: S1 and S2 normal with no audible murmur, regular rhythm. ABDOMEN: No hepatosplenomegaly, normal bowel sounds, no guarding or rigidity. SPINE: No scoliosis or deformity SKIN: No rashes CENTRAL NERVOUS SYSTEM: No focal deficits, tone is normal in all 4 extremities. EXTREMITIES: There is 1+ peripheral edema. No clubbing, no cyanosis. Peripheral pulses are intact. - Labs CBC & Chem 7: 03/14/23 05:40 03/15/23 05:38 Labs: Abnormal Lab Results - Last 24 Hours (Table) 03/14/23 03/15/23 Range/Units 05:40 05:38 WBC 20.20 H (4.50-10.00) X 10*3/uL RBC 3.59 L (4.40-5.60) X 10*6/uL Hgb 11.1 L (12.0-15.0) d/dL Hct 35.7 L (39.6-50.0) % MCV 99.4 H (80.0-97.0) FL MCHC 31.1 L (32.0-37.0) d/dL MPV 12.6 H (9.5-12.2) FL Neutrophils # 18.18 H (1.80-7.70) X 10*3/uL Lymphocytes # 0.81 L (0.90-5.00) X 10*3/uL Carbon Dioxide 18.3 L (21.6-31.8) mmol/L Anion Gap 13.70 H (4.00-12.00) mmol/L BUN/Creatinine Ratio 29.75 H (12.00-20.00) Ratio Glucose 132 H (70-110) mg/dL Calcium 6.9 L (8.7-10.3) mg/dL Total Bilirubin <0.2 L (0.3-1.2) mg/dL AST 123 H (14-35) U/L ALT 257 H (10-49) U/L Alkaline Phosphatase 232 H (41-126) U/L Total Protein 4.9 L (6.2-8.2) d/dL Albumin 2.9 L (3.8-4.9) d/dL Albumin/Globulin Ratio 1.45 L (1.60-3.17) Ratio Microbiology - Last 24 Hours (Table) 03/12/23 15:45 Blood Culture Gram Stain - Preliminary Blood Blood Culture - Preliminary Coagulase Negative Staph 03/12/23 15:30 Blood Culture - Preliminary Blood Assessment and Plan Assessment: Acute exacerbation of oxygen dependent, steroid dependent chronic obstructive pulmonary disease Acute on chronic hypoxemic respiratory failure secondary to above Transaminitis of unclear etiology. Computed tomography scan of the abdomen revealed no acute process. Ultrasound of the abdomen revealed increased attenuation within the liver which may indicate mild fatty infiltration. No abnormalities of the gallbladder. Statins on hold, trending down. History of prostate cancer Hyperlipidemia Obesity Former smoker Hypothyroidism Chronic lower extremity edema maintained on diuretics Plan: The patient was seen and evaluated Labs and medications reviewed Cleared for discharge from the pulmonary standpoint Continue his home pulmonary medications and oxygen Complete a prednisone taper Follow-up in our office in 1 week I have personally seen and examined the patient, performed the documentation and the assessment and plan as written. Number of minutes spent on the visit: 10.
[2023-03-15] MEDS: methylPREDNISolone SOD SUCCI 40 MG/ML 1 ML VIAL IV SCH (11:45)
[2023-03-15 14:10] VITALS: BP 131/56; TEMP 97.4
[2023-03-15 16:05] VITALS: PULSE 76
--- NOTE | 2023-03-15 20:05 | P.DS ---
Providers Date of admission: 03/12/23 17:58 Expected date of discharge: 03/15/23 Attending physician: Trevon Saravia Consults: 03/13/23 08:57 Consult Physician Routine Consulting Provider: Gilbert James Consult Reason/Comments: COPD exacerbation, respiratory failure Do you want consulting provider notified?: Yes Primary care physician: Kamala Walker [facility] Course: patient is a 67-year-old gentleman with past medical history significant for COPD who presented to the ER because of worsening shortness of breath. Patient stated that he was already 2 days back when he started noticing shortness of breath on rest as well as exertion. Denies any fever. Did complain of hemoptysis. Denies any chest pain. No complain of orthopnea PND. Patient has chronic swelling of feet. Because of this worsening shortness of breath, patient came to the ER Initial lab work in the ER showed WBC 15.9, hemoglobin 14.5, platelet count 225, d-dimer 1.22, sodium 139, potassium 4.8, BUN 21, creatinine 0.93, AST 181, ALT 171, Chest x-ray negative for acute pulmonary process CTA chest negative for PE, showed by patchy basilar density could be developing infiltrate CT abdomin showed no acute abdominal process Patient admitted to medicine service 03/14. Patient seen and examined. States breathing is improving. Denies Abdominal pain. States cough has also improved 03/15/2023: I assumed care of the patient today. Doing much better. Occasional cough. Eating well. Had a bowel movement. Keen to go home. Cleared by pulmonary. Prednisone taper. 2 more days of Ceftin. Patient has 3 L oxygen at home. On exam: 97.4, 89, 16, 131/56, 94% on 3 L Sitting at the edge of the bed, comfortable Lungs: Rate normal. Decreased breath sound Cardiovascular first seconds are normal Psychiatry: AO 3, mood affect normal Investigations: Liver ultrasound: Increase integration within the liver. CT abdomen: No acute process. Some atelectasis. Chest CTA: Patchy basilar density. Assessment and plan Acute hypoxemic respiratory failure -Acute tracheal bronchitis: Improving Acute COPD exacerbation: Better Chronic hypoxic respiratory failure from underlying COPD on 3 L oxygen at home Hypothyroidism Hyperlipidemia Increase attenuation in the liver, Probable hepatic [id number] with PCP outpatient Disposition: Home Plan - Discharge Summary Discharge Rx Participant: No New Discharge Prescriptions: New predniSONE 10 mg PO DAILY #30 tab cefUROXime axetiL [Ceftin] 500 mg PO BID #4 tab Continue Levothyroxine Sodium 125 mcg PO DAILY Ibuprofen [Motrin] 800 mg PO DAILY PRN PRN Reason: Pain Fluticasone/Umeclidin/Vilanter [Trelegy Ellipta 100-62.5-25] 1 puff INHALATION RT-DAILY Albuterol Nebulized [Ventolin Nebulized] 2.5 mg INHALATION RT-QID predniSONE 10 mg PO DAILY Furosemide [Lasix] 40 mg PO DAILY Ipratropium Nebulized [Atrovent Nebulized 0.2 MG/ML] 0.5 mg INHALATION RT-QID Albuterol Inhaler [Ventolin Hfa Inhaler] 2 puff INHALATION RT-QID PRN PRN Reason: Shortness Of Breath Atorvastatin [Lipitor] 20 mg PO DAILY Discharge Medication List Albuterol Nebulized [Ventolin Nebulized] 2.5 mg INHALATION RT-QID 06/29/22 [History] Fluticasone/Umeclidin/Vilanter [Trelegy Ellipta 100-62.5-25] 1 puff INHALATION RT-DAILY 06/29/22 [History] Furosemide [Lasix] 40 mg PO DAILY 06/29/22 [History] Ibuprofen [Motrin] 800 mg PO DAILY PRN 06/29/22 [History] Levothyroxine Sodium 125 mcg PO DAILY 06/29/22 [History] predniSONE 10 mg PO DAILY 06/29/22 [History] Ipratropium Nebulized [Atrovent Nebulized 0.2 MG/ML] 0.5 mg INHALATION RT-QID 12/15/22 [History] Albuterol Inhaler [Ventolin Hfa Inhaler] 2 puff INHALATION RT-QID PRN 03/12/23 [History] Atorvastatin [Lipitor] 20 mg PO DAILY 03/12/23 [History] cefUROXime axetiL [Ceftin] 500 mg PO BID #4 tab 03/15/23 [Rx] predniSONE 10 mg PO DAILY #30 tab 03/15/23 [Rx] Follow up Appointment(s)/Referral(s): Mckayla Hollis MD [STAFF PHYSICIAN] - 04/06/23 1:15 pm Patrick Baptiste DO [STAFF PHYSICIAN] - 1 Week (Office is closed until WednesdayMarch 17. Please call then to make a follow up appointment. ) Norberto Davis [NON-STAFF] - 1 Week Patient Instructions/Handouts: Pneumonitis (DC), Sepsis (DC), Leukocytosis (DC), Acute Respiratory Failure (GEN)
== END 2023-03-15 17:34 | disposition home or self-care (01) | DRG 189 ==
LOC: EC 14:44 → 4SSUR 17:58 → 5NMEDONC 20:05
PROVIDERS: ADMIT Hospitalist; ATTEND Hospitalist
DX: J96.21 Acute and chronic respiratory failure with hypoxia (principal); J44.1 Chronic obstructive pulmonary disease with (acute) exacerbation; J98.11 Atelectasis; E03.9 Hypothyroidism, unspecified; E66.9 Obesity, unspecified; E78.5 Hyperlipidemia, unspecified; J20.9 Acute bronchitis, unspecified; K76.0 Fatty (change of) liver, not elsewhere classified; Z20.822 Contact with and (suspected) exposure to COVID-19; Z79.52 Long term (current) use of systemic steroids; Z79.890 Hormone replacement therapy; Z79.899 Other long term (current) drug therapy; Z82.49 Family history of ischemic heart disease and other diseases of the circulatory system; Z85.46 Personal history of malignant neoplasm of prostate; Z99.81 Dependence on supplemental oxygen; Z68.36 Body mass index [BMI] 36.0-36.9, adult
CPT/HCPCS: 36415; 71046; 71275; 74160; 76700; 80053; 81001; 83605; 83735; 83880; 84145; 84484; 85025; 85379; 85610; 85730; 87040; 87449; 87636; 93005; 94640; 94760; 96365; 96366; 96375; 99285

== ENCOUNTER → 2023-12-22 | Outpatient (CLI) | payer MEDICARE ==
[2023-12-22 15:38] LABS: Appearance,Urine Clear (Clear); Bilirubin,Urine Negative (Negative); Blood,Urine Negative (Negative); Color,Urine Yellow (Yellow); Ketones,Urine Negative (Negative); Nitrite,Urine Negative (Negative); Specific Gravity,Urine 1.006 (1.001-1.030); Urobilinogen,Urine 0.2 E.U./DL
[2023-12-22 16:16] LABS: Basophils # (A) 0.09 X 10*3/uL (0.00-0.10); Basophils % (A) 0.9 %; Eosinophils # (A) 0.36 X 10*3/uL (0.04-0.35); Eosinophils % (A) 3.6 %; HCT 46.2 % (39.6-50.0); HGB 14.7 g/dL (13.0-17.0); Lymphocytes # (A) 1.56 X 10*3/uL (0.90-5.00); Lymphocytes % (A) 15.4 %; MCHC 31.8 g/dL (32.0-37.0); MCV 97.5 FL (80.0-97.0); Mean Platelet Volume 12.5 FL (9.5-12.2); Monocytes # (A) 0.53 X 10*3/uL (0.20-1.00); Monocytes % (A) 5.2 %; NRBC Per 100 WBC 0 X 10*3/uL (0.00-0.01); Neutrophils # (A) 7.55 X 10*3/uL (1.80-7.70); Neutrophils % (A) 74.6 %; Platelet Count 210 X 10*3/uL (140-440); RBC 4.74 X 10*6/uL (4.40-5.60); RDW 13.5 % (11.5-14.5); WBC 10.12 X 10*3/uL (4.50-10.00)
[2023-12-22 16:27] LABS: BUN/Creat Ratio 16.09 Ratio (12.00-20.00); Blood Urea Nitrogen 17.7 mg/dL (9.0-27.0); Calcium 8.8 mg/dL (8.7-10.3); Carbon Dioxide 25.5 mmol/L (21.6-31.8); Chloride 104 mmol/L (96-109); Glucose 105 mg/dL (70-110); Potassium 4.3 mmol/L (3.5-5.5); Sodium 144 mmol/L (135-145)
== END | disposition home or self-care (01) ==
LOC: LABPAT 09:59
PROVIDERS: ATTEND Urology
DX: Z01.818 Encounter for other preprocedural examination (principal); C61 Malignant neoplasm of prostate
CPT/HCPCS: 36415; 80048; 81003; 85025; 86850; 86900; 86901; 87086; 93005

== ENCOUNTER 2023-12-30 05:46 | Day surgery (SDC) | payer MEDICARE ==
[2023-12-27 16:11] VITALS: BMI 37.4
--- NOTE | 2023-12-28 09:42 | P.HPIHPCON ---
History of Present Illness H&P Date: 12/28/23 Chief Complaint: Prostate cancer This is a 68-year-old male with a history of Kolton 7 prostate cancer, initially diagnosed in June 2022 with a Kolton 6 prostate cancer initially was on active surveillance, and repeat biopsy there is appears to be progression of his disease. At this point discussed with him option of a robotic radical prostatectomy, versus radiation therapy versus continued surveillance. Risk benefit and rationale of each approach was discussed with him in detail. He agreed to proceed with a robotic radical prostatectomy with possible bilateral pelvic lymph node dissection. Aware the risk which includes but not limited to bleeding, infection, erectile dysfunction, urinary incontinence, injury to nearby organs which includes but not limited to bladder, the rectum, bowel. Risk of anesthesia was also discussed with him in detail. Discussed also given his obesity potentially he may not be able to tolerate pneumoperitoneum and at this point we will have to abort the surgery. He understood all the risk and agreed to proceed Consent for Procedure: I have explained the operation/procedure to the patient, including the risks, benefits, side effects, alternative therapies (including not receiving the proposed treatment or service), the likelihood of the patient achieving his/her goals, and potential recuperation problems for the procedure/sedation/analgesia, as well as any blood products, if indicated. I also explained to the patient the risks, benefits and side effects of the alternatives, as well as the risks related to not receiving the proposed procedure, care, treatment, or services. Past Medical History Past Medical History: Cancer, COPD, Pneumonia, Prostate Disorder, Thyroid Disorder Additional Past Medical History / Comment(s): states slightly enlarged heart, Told "A couple years ago I had a little fluid around my heart.". prostate cancer dx Jun 2023-no chemo no radiation. O2 2L N/C PRN @ night. History of Any Multi-Drug Resistant Organisms: None Reported Past Surgical History: Orthopedic Surgery Additional Past Surgical History / Comment(s): states lungs drained x2 for pneumonia, fx femur surgery, cataracts bi lat. Past Anesthesia/Blood Transfusion Reactions: No Reported Reaction Additional Past Anesthesia/Blood Transfusion Reaction / Comment(s): No hx of blood transfusion. Smoking Status: Former smoker - Past Family History Mother Family Medical History: Myocardial Infarction ([place]) Medications and Allergies Home Medications Medication Instructions Recorded Confirmed Type Albuterol Nebulized [Ventolin 2.5 mg INHALATION RT-QID 06/29/22 12/27/23 History Nebulized] Fluticasone/Umeclidin/Vilanter 1 puff INHALATION RT-DAILY 06/29/22 12/27/23 History [Trelegy Ellipta 100-62.5-25] Furosemide [Lasix] 40 mg PO QAM 06/29/22 12/27/23 History Ibuprofen [Motrin] 800 mg PO QAM PRN 06/29/22 03/12/23 History Levothyroxine Sodium 125 mcg PO QAM 06/29/22 12/27/23 History Ipratropium Nebulized [Atrovent 0.5 mg INHALATION RT-QID 12/15/22 12/27/23 History Nebulized 0.2 MG/ML] Albuterol Inhaler [Ventolin Hfa 2 puff INHALATION RT-QID PRN 03/12/23 12/27/23 History Inhaler] predniSONE 10 mg PO QAM 12/27/23 12/27/23 History Allergies Allergy/AdvReac Type Severity Reaction Status Date / Time No Known Allergies Allergy Verified 12/27/23 15:48 Surgical - Exam - General no distress, no pain - Eyes normal ocular movement, no pale - ENT normal nares, normal mucosa - Respiratory normal expansion, normal respiratory effort - Abdomen Abdomen: soft, non tender Assessment and Plan Assessment: OR for robotic radical prostatectomy, with possible bilateral pelvic lymph node dissection
[~2023-12-30 05:46] MED LIST changes: +HEPARIN SODIUM,PORCINE 5,000 UNIT/ML 1 ML VIAL SQ PRN; -LACTATED RINGERS 1,000 ML IV SCH
[2023-12-30] MEDS: LACTATED RINGERS 1,000 ML IV SCH (06:16)
[2023-12-30] MEDS: HYDROCORTISONE SUCCINATE 100 MG/2 ML VIAL IVP ONE (07:05)
[2023-12-30] MEDS: ONDANSETRON 4 MG/2 ML VIAL IVP ONE (07:05)
[2023-12-30] MEDS: DEXAMETHASONE SOD PHOSPHATE 4 MG/ML 1 ML VIAL IV ONE (07:05)
[2023-12-30] MEDS: MIDAZOLAM 2 MG/2 ML VIAL IVP ONE (07:09)
[2023-12-30] MEDS: fentaNYL (PF) 50 MCG/1 ML VIAL IVP ONE (07:09)
[2023-12-30] MEDS ORDERED: NEOSTIGMINE 1 MG/ML 10 ML VIAL ONE (07:25)
[2023-12-30] MEDS ORDERED: ROCURONIUM 10 MG/ML (5 ML VIAL) IV ONE (07:25)
[2023-12-30] MEDS ORDERED: fentaNYL (PF) 50 MCG/ML 2 ML AMP ONE (07:25)
[2023-12-30] MEDS ORDERED: LIDOCAINE 1% INJ 10MG/ML (20 ML MDV) ONE (07:25)
[2023-12-30] MEDS ORDERED: GLYCOPYRROLATE 0.2 MG/ML 2 ML VIAL ONE (07:25)
[2023-12-30] MEDS ORDERED: DEXAMETHASONE SOD PHOSPHATE 4 MG/ML 1 ML VIAL ONE (07:25)
[2023-12-30] MEDS ORDERED: PROPOFOL 10 MG/ML 20 ML VIAL IV ONE (07:25)
[2023-12-30] MEDS ORDERED: ROPIVACAINE 5 MG/ML 30 ML VIAL ONE (07:25)
[2023-12-30] MEDS ORDERED: SUCCINYLCHOLINE CHLORIDE 200 MG/10 ML VIAL IV ONE (07:25)
--- NOTE | 2023-12-30 07:26 | P.ANPRN ---
Procedure Note - Anesthesia - Nerve Block Performed Bilateral Erector Spinae Single Time Out Performed: Yes Date of Procedure: 12/30/23 Procedure Start Time: Procedure Stop Time: Location of Patient: PreOp Indication: Acute Post-Operative Pain, Analgesia, Requested by Surgeon Sedation Type: Sedate with meaningful contact maintained Preparation: Sterile Prep Position: Prone Needle Types: Pajunk Needle Gauge: 21 Ultrasound used to visualize needle placement: Yes Ultrasound used to observe medication spread: Yes Injectate: 0.5% Ropivacaine (see comment for volume) (Ropiv 20ml + decadron 4mg--- Each side. Transverse process and pleura were visualised in ultrasound) Blood Aspirated: No Pain Paresthesia on Injection Noted: No Resistance on Injection: Normal Image Stored and Saved: Yes Events: Uneventful and Well Tolerated
[2023-12-30] MEDS: LACTATED RINGERS 1,000 ML IV ONE (07:30)
[2023-12-30] MEDS: BUPIVACAINE (PF) 0.25% 30 ML VIAL SQ ONE (07:30)
[2023-12-30] MEDS ORDERED: ALBUTEROL NEBULIZED 2.5 MG/3 ML INHALATION PRN (09:24)
[2023-12-30] MEDS: HYDROmorphone 0.5 MG/0.5 ML SYRINGE IVP PRN (09:41)
[2023-12-30] MEDS ORDERED: ONDANSETRON 4 MG/2 ML VIAL IVP PRN (09:43)
[2023-12-30] MEDS ORDERED: HYDROcodone/APAP 5-325MG 1 EACH TAB PO PRN (09:46)
--- NOTE | 2023-12-30 10:23 | XR ---
EXAMINATION TYPE: XR chest 1V DATE OF EXAM: 12/30/2023 COMPARISON: 03/12/2023 HISTORY: 68-year-old male increased CO2, shortness of breath TECHNIQUE: Single frontal view of the chest is obtained. FINDINGS: Heart borderline to mildly enlarged. Mild interstitial prominence. Mild hyperinflation. No consolidation or pleural effusion. Subcutaneous emphysema right supraclavicular region and along the lateral lower hemithoraces on both sides. IMPRESSION: 1. Borderline to mild cardiomegaly. Possible background COPD. Correlate to exclude mild pulmonary vas cular congestion. 2. Query etiology for subcutaneous emphysema right supraclavicular region and along the lateral lower hemithoraces on both sides. This is an unexpected finding.
--- NOTE | 2023-12-30 10:42 | P.OP ---
Date of Procedure: 12/30/23 Preoperative Diagnosis: prostate cancer Postoperative Diagnosis: same Procedure(s) Performed: Attempted robotic radical prostatectomy Implants: none Anesthesia: ALPHONSO Surgeon: Garrett Godfrey Estimated Blood Loss (ml): 20 Pathology: none sent Condition: stable Disposition: PACU Indications for Procedure: This is a 68-year-old male with a history of Kolton 7 prostate cancer, initially diagnosed in June 2022 with a [place] 6 prostate cancer initially was on active surveillance, and repeat biopsy there is appears to be progression of his disease. At this point discussed with him option of a robotic radical prostatectomy, versus radiation therapy versus continued surveillance. Risk benefit and rationale of each approach was discussed with him in detail. He agreed to proceed with a robotic radical prostatectomy with possible bilateral pelvic lymph node dissection. Aware the risk which includes but not limited to bleeding, infection, erectile dysfunction, urinary incontinence, injury to nearby organs which includes but not limited to bladder, the rectum, bowel. Risk of anesthesia was also discussed with him in detail. Discussed also given his obesity potentially he may not be able to tolerate pneumoperitoneum and at this point we will have to abort the surgery. He understood all the risk and agreed to proceed Operative Findings: Case aborted, patient unable to tolerated pneumoperitoneum Description of Procedure: After preoperative antibiotics were started, the patient was taken to the operating room. Anesthesia was induced and the patient was placed in a supine position, with adequate padding of the pressure points, shoulders, back, legs and arms. He was then prepped and draped in the standard fashion. A critical pause was performed using two patient identifiers. A 16F sánchez catheter was placed to gravity drainage. A pneumo-peritoneum was created with placement of a Veress needle to 20 mm Hg without complication. Given patient's midline incision the Veress needle was placed in the left upper quadrant to obtain pneumoperitoneum. Next an 8 Bhutanese trocar was placed in the right quadrant. Laparoscopy was performed which showed no adhesions along the midline or evidence of any injuries from the Veress needle entry. Next an 8 Fr trocar was placed above the umbillicus under direct vision. Under direct vision a 8mm robotic ports was placed on the left, the left iliac fossa 8mm port was placed. The right orthotics assistant right iliac fossa 12mm port and right paramedian 5mm portwere placed. After the patient was placed in the trendelenberg position, the robot was then docked to the 8mm robotic ports and then each robotic arm and tower was checked in relation to the patient's legs and hands to avoid inadvertent compression. The peritoneal cavity was inspected. Patient had significant adhesion involving the left lower quadrant and the sigmoid colon which was taken down sharply robotically. There was no injury to the bowel during lysis of adhesions At this point an inverted U-shaped incision began laterally to the left medial umbilical ligament and extended high across the midline to the right umbilical ligament. The limbs of the "U" extended to the level of the vasa on both sides. We next developed the preperitoneal space and the space of Retzius. Both endopelvic fascia on both sides were opened to clearly define the prostate. at this point patient had poor tolerance to the pneumoperitoneum. pCO2 continued to increase and maintain at a higher level of 55-60 despite multiple adjustments to the ventilator and decreasing the pneumoperitoneum. At the beginning of the case his pCO2 was at 40 but continued to climb throughout the case. I decreased the pneumoperitoneum all the way down to 15 without significant improvement. Attempted decrease . further significantly decreased visualization given the significant amount of pelvic fat which made the case not possible to safely perform. Given patient on ability to tolerate the pneumoperitoneum decision was made to abort the case. At this point the robot was undocked and patient was taken out of Trendelenburg,. The ports were removed. All ports were closed with a subcuticular 4-0 monocryl and Dermabond. Sponge, instrument, and needle counts were correct at the end of the case x2. . He awoke without difficulty and was taken to the recovery room in stable condition
[2023-12-30] MEDS ORDERED: ALBUTEROL NEBULIZED 2.5 MG/3 ML INHALATION SCH (12:00)
[2023-12-30] MEDS: IPRATROPIUM 0.5 MG/2.5 ML NEBU INHALATION SCH (12:37)
[2023-12-30] MEDS: KETOROLAC 15 MG/ML 1 ML VIAL IVP SCH (13:54)
[2023-12-30] MEDS: D5-0.45% NACL WITH KCL 20MEQ/L 1,000 ML IV SCH (13:55)
[2023-12-30] MEDS: HEPARIN SODIUM,PORCINE 5,000 UNIT/ML 1 ML VIAL SQ SCH (16:51)
[2023-12-30] MEDS: SYMBICORT 80-4.5 MCG INHALER INHALATION SCH (18:15)
[2023-12-31 02:17] VITALS: RESP 20
[2023-12-31] MEDS: LEVOTHYROXINE 125 MCG TAB PO SCH (06:02)
[2023-12-31 08:29] VITALS: BP 103/63; TEMP 98.3
[2023-12-31] MEDS: predniSONE 10 MG TAB PO SCH (08:56)
[2023-12-31] MEDS: FUROSEMIDE 40 MG TAB PO SCH (08:56)
[2023-12-31 12:13] VITALS: PULSE 84
--- NOTE | 2023-12-31 14:00 | P.DS ---
Providers Attending physician: Garrett Godfrey MD Primary care physician: [facility] Hospital Course: This is a 68-year-old male with history of Kolton 7 prostate cancer. Underwent an attempted radical prostatectomy on December 29. Case had to be aborted as patient was unable to tolerate pneumoperitoneum in Trendelenburg. He was admitted to the hospital postoperatively. He was discharged home on postop day #1, at time of discharge he was tolerating a diet, ambulating, and pain was controlled. He will follow-up with radiation oncology for his prostate cancer treatment Plan - Discharge Summary Discharge Rx Participant: No New Discharge Prescriptions: New Ketorolac [Toradol] 10 mg PO Q6HR #15 tab No Action Levothyroxine Sodium 125 mcg PO QAM Ibuprofen [Motrin] 800 mg PO QAM PRN PRN Reason: Pain Fluticasone/Umeclidin/Vilanter [Trelegy Ellipta 100-62.5-25] 1 puff INHALATION RT-DAILY Albuterol Nebulized [Ventolin Nebulized] 2.5 mg INHALATION RT-QID Furosemide [Lasix] 40 mg PO QAM Ipratropium Nebulized [Atrovent Nebulized 0.2 MG/ML] 0.5 mg INHALATION RT-QID Albuterol Inhaler [Ventolin Hfa Inhaler] 2 puff INHALATION RT-QID PRN PRN Reason: Shortness Of Breath predniSONE 10 mg PO QAM Discharge Medication List Albuterol Nebulized [Ventolin Nebulized] 2.5 mg INHALATION RT-QID 06/29/22 [History] Fluticasone/Umeclidin/Vilanter [Trelegy Ellipta 100-62.5-25] 1 puff INHALATION RT-DAILY 06/29/22 [History] Furosemide [Lasix] 40 mg PO QAM 06/29/22 [History] Ibuprofen [Motrin] 800 mg PO QAM PRN 06/29/22 [History] Levothyroxine Sodium 125 mcg PO QAM 06/29/22 [History] Ipratropium Nebulized [Atrovent Nebulized 0.2 MG/ML] 0.5 mg INHALATION RT-QID 12/15/22 [History] Albuterol Inhaler [Ventolin Hfa Inhaler] 2 puff INHALATION RT-QID PRN 03/12/23 [History] predniSONE 10 mg PO QAM 12/27/23 [History] Ketorolac [Toradol] 10 mg PO Q6HR #15 tab 12/31/23 [Rx] Patient Instructions/Handouts: Ketorolac (By mouth)
== END 2023-12-31 14:27 | disposition home or self-care (01) ==
LOC: OR 05:46 → 5NMEDONC 11:27 → OR 12-31 14:27
PROVIDERS: ATTEND Urology
DX: C61 Malignant neoplasm of prostate (principal); G89.18 Other acute postprocedural pain; J44.9 Chronic obstructive pulmonary disease, unspecified; E07.9 Disorder of thyroid, unspecified; Z87.891 Personal history of nicotine dependence; Z82.49 Family history of ischemic heart disease and other diseases of the circulatory system; Z79.51 Long term (current) use of inhaled steroids; Z79.890 Hormone replacement therapy; Z79.899 Other long term (current) drug therapy; Z79.52 Long term (current) use of systemic steroids
CPT/HCPCS: 94640 ×4; 64999; 71045; 55866; J2250; J1644 ×2; J1100; J1720; J0690; J2405; J1885 ×2; J7512; J1170; J3010; J0665

== ENCOUNTER → 2024-01-31 | Outpatient (CLI) | payer MEDICARE ==
--- NOTE | 2024-01-31 15:11 | MR ---
EXAMINATION TYPE: MR Prostate wo/w con DATE OF EXAM: 01/31/2024 9:32 AM COMPARISON: None. CLINICAL INDICATION:Male, 68 years old with history of C61 prostate ca; Abdominal Pain x 4 months TECHNIQUE: Multi-planar, multi-sequence imaging of the pelvis is performed prior to and following the uncomplicated administration of bolus intravenous gadolinium. CONTRAST: 9.5 Gadavist Interpretive Criteria: PI-RADS v2.1 SERUM PSA: 7.89 on 08/18/2023 SURGICAL PATHOLOGY: Previous positive biopsy. 10/19/2023 right base, right mid right apex left lateral base FINDINGS: Prostatic dimensions: 5.5 x 4.2 x 3.1 cm. "Bullet" Volume:46.87 (PSA density=0.17 ng/mL/mL) CENTRAL GLAND (Central and Transition Zones/CZ+TZ): Multiple bilateral, heterogenous appearing hypertrophic stromal nodules, without suspicious lesion. (PI-RADS 2) PERIPHERAL ZONE (PZ): Bilateral linear, indistinct wedgelike areas of low ADC, and low T2 signal, low signal areas most pro nounced on the right lateral peripheral gland mid gland and base. This area in the right peripheral l sh[place]ana correlates with high T1 signal on precontrast imaging as well as an area in the central gland on the right. This likely secondary to previous biopsy hemorrhage. No evidence of masslike abnormality, or localized perfusional hypervascularity, to further suggest a focus of clinically significant prost ate cancer. (PI-RADS 2) SEMINAL VESICLES (SV): Symmetric and unremarkable. PERIPROSTATIC TISSUES: Unremarkable. LYMPH NODES: No enlarged pelvic lymph node. REMAINING PELVIS: Bladder wall is within normal limits given distention. No abnormal free or organized intrapelvic fluid collection. No pathologic bowel dilation or mural thickening. No hernia visualized Large bilateral hydroceles. OSSEOUS STRUCTURES: No suspicious osseous abnormality. IMPRESSION: 1. No specific features for high-risk prostate cancer. Maximum PI-RADS score: 2. 2. Mild BPH, estimated gland volume 46.87 mL. 3. No suspicious osseous lesion. No lymphadenopathy. No evidence of prostate adenocarcinoma involving the periprostatic tissues.
== END | disposition home or self-care (01) ==
LOC: RADMRIMAIN 08:01
PROVIDERS: ATTEND Radiology Radiation Oncology
DX: N40.0 Benign prostatic hyperplasia without lower urinary tract symptoms (principal); C61 Malignant neoplasm of prostate
CPT/HCPCS: 72197; A9585

== ENCOUNTER → 2024-08-02 | Outpatient (CLI) | payer MEDICARE ==
[2024-08-03 02:44] LABS: Basophils # (A) 0.07 X 10*3/uL (0.00-0.10); Basophils % (A) 0.8 %; Eosinophils % (A) 1.2 %; HCT 43.6 % (39.6-50.0); HGB 13.9 g/dL (13.0-17.0); Lymphocytes # (A) 0.79 X 10*3/uL (0.90-5.00); Lymphocytes % (A) 9.3 %; MCH 31.2 pg (27.0-32.0); MCHC 31.9 g/dL (32.0-37.0); Mean Platelet Volume 12.2 FL (9.5-12.2); Monocytes % (A) 4.7 %; NRBC Per 100 WBC 0 X 10*3/uL (0.00-0.01); Neutrophils # (A) 7.07 X 10*3/uL (1.80-7.70); Neutrophils % (A) 83.5 %; Platelet Count 227 X 10*3/uL (140-440); RBC 4.45 X 10*6/uL (4.40-5.60); RDW 13.3 % (11.5-14.5); WBC 8.47 X 10*3/uL (4.50-10.00)
[2024-08-03 03:10] LABS: BUN/Creat Ratio 17.33 Ratio (12.00-20.00); Blood Urea Nitrogen 20.8 mg/dL (9.0-27.0); Calcium 9.1 mg/dL (8.7-10.3); Carbon Dioxide 27.1 mmol/L (21.6-31.8); Chloride 104 mmol/L (96-109); Glucose 105 mg/dL (70-110); Potassium 4.9 mmol/L (3.5-5.5); Sodium 142 mmol/L (135-145)
[2024-08-03 03:11] LABS: Prostate Specific Antigen 0.77 ng/mL (0.000-4.500)
== END | disposition home or self-care (01) ==
LOC: LABPAT 15:12
PROVIDERS: ATTEND Internal Medicine
DX: Z01.812 Encounter for preprocedural laboratory examination (principal); C61 Malignant neoplasm of prostate; N43.3 Hydrocele, unspecified
CPT/HCPCS: 80048; 84153; 85025

== ENCOUNTER 2024-08-04 10:31 | Day surgery (SDC) | payer MEDICARE ==
[2024-08-03 09:04] VITALS: BMI 34.1
[~2024-08-04 10:31] MED LIST changes: -HEPARIN SODIUM,PORCINE 5,000 UNIT/ML 1 ML VIAL SQ PRN; +HYDROmorphone 0.5 MG/0.5 ML SYRINGE IVP PRN; +MIDAZOLAM 2 MG/2 ML VIAL IV PRN
[2024-08-04 11:14] LABS: Glucose,Whole Blood 79 mg/dL (70-110)
[2024-08-04] MEDS: IV FLUID CONTINUATION 1,000 ML IV ONE (11:14)
[2024-08-04] MEDS: LACTATED RINGERS 1,000 ML IV SCH (11:15)
[2024-08-04] MEDS: ONDANSETRON 4 MG/2 ML VIAL IVP ONE (11:18)
[2024-08-04] MEDS: DEXAMETHASONE SOD PHOSPHATE 4 MG/ML 1 ML VIAL IV ONE (11:18)
--- NOTE | 2024-08-04 12:06 | P.HPIHPCON ---
History of Present Illness H&P Date: 08/04/24 Chief Complaint: Bilateral hydroceles This is a 68-year-old male with a history of bilateral symptomatic hydroceles. Option of bilateral hydrocelectomy was discussed with him. Aware of the risk which includes but not limited to bleeding, infection, injury to the testicle. Risk of reoccurrence was also discussed Consent for Procedure: I have explained the operation/procedure to the patient, including the risks, benefits, side effects, alternative therapies (including not receiving the proposed treatment or service), the likelihood of the patient achieving his/her goals, and potential recuperation problems for the procedure/sedation/analgesia, as well as any blood products, if indicated. I also explained to the patient the risks, benefits and side effects of the alternatives, as well as the risks related to not receiving the proposed procedure, care, treatment, or services. Past Medical History Past Medical History: Cancer, COPD, Pneumonia, Thyroid Disorder Additional Past Medical History / Comment(s): "Slightly enlarged heart, had a little fluid around heart." Hx prostate cancer Jun 2023, had radiation, completed Apr or May 2024. O2 use at night only, 2L per [place]. History of Any Multi-Drug Resistant Organisms: None Reported Past Surgical History: Orthopedic Surgery Additional Past Surgical History / Comment(s): "Lungs drained X2 for pneumonia", right fractured femur surgery, bilateral cataract surgery. Past Anesthesia/Blood Transfusion Reactions: No Reported Reaction Additional Past Anesthesia/Blood Transfusion Reaction / Comment(s): No hx blood transfusion. Past Psychological History: Depression Smoking Status: Former smoker Past Alcohol Use History: Occasional Additional Past Alcohol Use History / Comment(s): Quit smoking in 1996, smoked 2-3 ppd, started around age 21. Past Drug Use History: None Reported - Past Family History Mother Family Medical History: Myocardial Infarction ([place]) Medications and Allergies Home Medications Medication Instructions Recorded Confirmed Type Albuterol Nebulized [Ventolin 2.5 mg INHALATION RT-QID 06/29/22 08/04/24 History Nebulized] Fluticasone/Umeclidin/Vilanter 1 puff INHALATION RT-DAILY 06/29/22 08/04/24 History [Trelegy Ellipta 100-62.5-25] Furosemide [Lasix] 40 mg PO QAM 06/29/22 08/04/24 History Ibuprofen [Motrin] 800 mg PO QAM PRN 10/17/22 11/22/24 History Levothyroxine Sodium 125 mcg PO QAM 06/29/22 08/04/24 History Ipratropium Nebulized [Atrovent 0.5 mg INHALATION RT-QID 12/15/22 08/04/24 History Nebulized 0.2 MG/ML] Albuterol Inhaler [Ventolin Hfa 2 puff INHALATION RT-QID PRN 03/12/23 08/04/24 History Inhaler] predniSONE 10 mg PO QAM 12/27/23 08/04/24 History Tamsulosin [Flomax] 0.4 mg PO DAILY #7 cap 04/15/24 08/04/24 Rx Allergies Allergy/AdvReac Type Severity Reaction Status Date / Time No Known Allergies Allergy Verified 08/04/24 11:20 Surgical - Exam Vital Signs Temp Pulse Resp BP Pulse Ox 97.0 F L 76 16 126/67 97 08/04/24 10:57 08/04/24 10:57 08/04/24 10:57 08/04/24 10:57 08/04/24 10:57 - General no distress, no pain - Eyes normal ocular movement, no pale - ENT normal nares, normal mucosa - Respiratory normal expansion, normal respiratory effort - Abdomen Abdomen: soft, non tender - Psychiatric oriented to time, oriented to person, oriented to place Assessment and Plan Assessment: OR for bilateral hydrocelectomy
[2024-08-04] MEDS ORDERED: PROPOFOL 10 MG/ML 20 ML VIAL IV ONE (12:24)
[2024-08-04] MEDS ORDERED: LIDOCAINE 1% INJ 10MG/ML (20 ML MDV) ONE (12:24)
[2024-08-04] MEDS ORDERED: fentaNYL (PF) 50 MCG/ML 2 ML AMP ONE (12:24)
[2024-08-04] MEDS: BUPIVACAINE (PF) 0.25% 30 ML VIAL SQ ONE (12:53)
--- NOTE | 2024-08-04 13:40 | P.OP ---
Date of Procedure: 08/04/24 Preoperative Diagnosis: Bilateral hydroceles Postoperative Diagnosis: Same Procedure(s) Performed: Bilateral hydrocelectomy Anesthesia: MAC Surgeon: Garrett Godfrey Estimated Blood Loss (ml): 20 Pathology: other (Bilateral hydrocele sac) Condition: stable Disposition: PACU Indications for Procedure: This is a 68-year-old male with a history of bilateral symptomatic hydroceles. Option of bilateral hydrocelectomy was discussed with him. Aware of the risk which includes but not limited to bleeding, infection, injury to the testicle. Risk of reoccurrence was also discussed Description of Procedure: Patient brought to the operating room, general anesthesia was induced. Next an incision was made along the median raphae. Attention was first carried to the left hydrocele, the dartos fascia was incised, next the hydrocele sac was was removed from the scrotal cavity, all attachments were released. Next an incision was made in the hydrocele sac and the hydrocele sac was drained. The hydrocele sac was completely excised, the edges were cauterized. bleeding was controlled with cautery. At this point the testicle was returned back to the scrotum with normal anatomical leg. No abnormality was appreciated on the testicle. The dartos fascia was closed with 3-0 Vicryl. Same procedure was also performed on the right side. At this time the skin was closed with 4-0 Monocryl in running fashion. Skin glue was applied to the incision. Local anesthetic was injected along the incision. Patient tolerated procedure well secondary covering stable condition
[2024-08-04 13:44] VITALS: TEMP 97.3
[2024-08-04 14:13] VITALS: RESP 16
[2024-08-04] MEDS: KETOROLAC 15 MG/ML 1 ML VIAL IVP STA (14:26)
[2024-08-04 15:14] VITALS: BP 131/89; PULSE 74
== END 2024-08-04 15:33 | disposition home or self-care (01) ==
LOC: OR 10:31
PROVIDERS: ATTEND Urology
DX: N43.3 Hydrocele, unspecified (principal); J44.9 Chronic obstructive pulmonary disease, unspecified; E03.9 Hypothyroidism, unspecified; F32.A Depression, unspecified; F10.90 Alcohol use, unspecified, uncomplicated; Z85.46 Personal history of malignant neoplasm of prostate; Z87.891 Personal history of nicotine dependence; Z79.52 Long term (current) use of systemic steroids; Z79.890 Hormone replacement therapy; Z79.1 Long term (current) use of non-steroidal anti-inflammatories (NSAID); Z99.81 Dependence on supplemental oxygen; Z98.890 Other specified postprocedural states
CPT/HCPCS: 55041; 88302; J1100; J0690; J2405; J2003; J3010; J1885; J2704; J0665

== ENCOUNTER → 2024-11-16 | Outpatient (CLI) | payer MEDICARE | END | disposition home or self-care (01) | LOC: LABWHC1 11:57 | PROVIDERS: ATTEND Radiology Radiation Oncology | DX: C61 Malignant neoplasm of prostate (principal); Z87.891 Personal history of nicotine dependence | CPT/HCPCS: 36415; 84153 ==